=== PATIENT | male | born 1960 | race Caucasian/White ===

== ENCOUNTER 2019-01-07 02:08 | Emergency (ER) | payer OTHER ==
[2019-01-07 02:29] VITALS: BP 131/75; PULSE 72; RESP 18; TEMP 97.5
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
== END 2019-01-07 06:53 | disposition home or self-care (01) ==
LOC: EC 02:08
DX: T69.8XXA Other specified effects of reduced temperature, initial encounter (principal); F17.200 Nicotine dependence, unspecified, uncomplicated; Z59.0 Homelessness; X31.XXXA Exposure to excessive natural cold, initial encounter; Y93.84 Activity, sleeping; Y92.89 Other specified places as the place of occurrence of the external cause
CPT/HCPCS: 99283

== ENCOUNTER 2023-06-01 13:50 | Emergency (ER) | payer OTHER ==
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
[2023-06-01 14:32] VITALS: RESP 18; TEMP 97.8
[2023-06-01 15:52] VITALS: BP 101/74; PULSE 72
== END 2023-06-01 15:33 | disposition home or self-care (01) ==
LOC: EC 13:50
DX: R53.1 Weakness (principal); Z59.00 Homelessness unspecified
CPT/HCPCS: 99285

== ENCOUNTER 2023-06-01 16:00 | Inpatient (IN) | payer OTHER ==
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
[2023-06-01] MEDS: HALOPERIDOL LACTATE 5 MG/ML 1 ML VIAL IM STA (18:10)
[2023-06-01] MEDS: SODIUM CHLORIDE 0.9% 1,000 ML IV STA ×3 (18:10→22:16)
[2023-06-01 18:13] LABS: Basophils % (A) 0 %; Eosinophils % (A) 0 %; HCT 35.2 % (39.0-53.0); HGB 11.6 gm/dL (13.0-17.5); Lymphocytes # (A) 0.3 k/uL (1.0-4.8); Lymphocytes % (A) 3 %; MCH 31.8 pg (25.0-35.0); MCV 96.4 fL (80.0-100.0); Mean Platelet Volume 9.5; Monocytes # (A) 0.2 k/uL (0-1.0); Monocytes % (A) 3 %; Neutrophils # (A) 9.3 k/uL (1.3-7.7); Neutrophils % (A) 94 %; Platelet Count 169 k/uL (150-450); RBC 3.65 m/uL (4.30-5.90); RDW 15.2 % (11.5-15.5); WBC 9.9 k/uL (3.8-10.6)
[2023-06-01 18:27] LABS: ALT 108 U/L (4-49); AST 151 U/L (17-59); African American GFR (CKD) >90 (>60 ml/min/1.73 sqM); Albumin 2.1 g/dL (3.5-5.0); Alcohol <10 mg/dL; Anion Gap 7 mmol/L; Blood Urea Nitrogen 37 mg/dL (9-20); Calcium 7.8 mg/dL (8.4-10.2); Carbon Dioxide 32 mmol/L (22-30); Chloride 99 mmol/L (98-107); Glucose 215 mg/dL (74-99); Magnesium 2.1 mg/dL (1.6-2.3); Non-African American GFR(CKD) >90 (>60 ml/min/1.73 sqM); Phosphorus 3.5 mg/dL (2.5-4.5); Sodium 138 mmol/L (137-145); Total Bilirubin 1.2 mg/dL (0.2-1.3); Total Protein 4.6 g/dL (6.3-8.2)
[2023-06-01 18:36] LABS: NT-Pro-B-Type Natriuretic Pept 1180 pg/mL
[2023-06-01 18:38] LABS: Potassium 2.6 mmol/L (3.5-5.1)
[2023-06-01 18:39] LABS: Lactic Acid, Venous 3.3 mmol/L (0.7-2.0)
[2023-06-01 18:40] LABS: INR 1.1 (<1.2); Partial Thromboplastin Time 22.5 sec (22.0-30.0); Prothrombin Time 11.5 sec (10.0-12.5)
[2023-06-01 19:34] LABS: Alkaline Phosphatase 657 U/L (38-126)
[2023-06-01] MEDS ORDERED: NALOXONE 0.4 MG/ML 1 ML VIAL IV PRN (21:36)
[2023-06-01] MEDS: HYDROmorphone 1 MG/ML 1 ML SYRINGE IVP STA (22:06)
[2023-06-01] MEDS: ONDANSETRON 4 MG/2 ML VIAL IVP STA (22:06)
[2023-06-01] MEDS: POTASSIUM BICARBONATE/CIT AC 20 MEQ TABLET.EFF PO ONE ×2 (22:07→22:08)
[2023-06-01] MEDS: SODIUM CHLORIDE 0.9% 1,000 ML IV SCH (22:19)
[2023-06-01] MEDS: ONDANSETRON 4 MG/2 ML VIAL IVP PRN (22:22)
[2023-06-01] MEDS: HYDROmorphone 1 MG/ML 1 ML SYRINGE IVP PRN (22:23)
[2023-06-01] MEDS: POTASSIUM CHLORIDE 10 MEQ in WATER FOR INJECTION 1 100ML.BAG IVPB SCH (22:24)
--- NOTE | 2023-06-01 23:09 | US ---
EXAMINATION TYPE: US gallbladder DATE OF EXAM: 06/01/2023 COMPARISON: NONE CLINICAL INDICATION: Male, 62 years old with history of weak; weak x 1 year TECHNIQUE: Multiple sonographic images of the right upper quadrant are obtained. FINDINGS: EXAM MEASUREMENTS: Liver Length: 16.8 cm Gallbladder Wall: 0.2 cm CBD: 0.3 cm Right Kidney: 8.6 x 5.9 x 4.7 cm OUTSIDE PROPERTY AGENT NOTES: Pancreas: wnl Liver: Severe heterogeneity, with numerous relatively echogenic mass like areas seen throughout. Gallbladder: Echogenic material filling over half the gallbladder lumen without evidence of shadowin g or flow on color Doppler, likely sludge. Evidence for sonographic Davis's sign: No CBD: wnl Right Kidney: wnl There appears to be partially imaged ascites. IMPRESSION: 1. Severely heterogeneous liver with multiple echogenic masslike lesions throughout. Metastatic dise ase is a primary consideration. CT may be obtained for further evaluation. 2. Suspect small to moderate volume of ascites. 3. Gallbladder sludge, without further sonographic evidence to suggest acute cholecystitis.
[2023-06-02 04:53] LABS: Appearance,Urine Cloudy (Clear); Bacteria,Urine Many /hpf; Bilirubin,Urine Negative (Negative); Blood,Urine Negative (Negative); Color,Urine Yellow; Glucose,Urine (UA) Negative (Negative); Hyaline Casts,Urine 16 /lpf (0-2); Ketones,Urine Negative (Negative); Leukocyte Esterase,Urine Moderate (Negative); Mucus,Urine Few /hpf; Nitrite,Urine Negative (Negative); Protein,Urine Trace (Negative); RBC,Urine 2 /hpf (0-5); Specific Gravity,Urine 1.025 (1.001-1.035); Squamous Epithelial Cell,Urine <1 /hpf (0-4); WBC,Urine 40 /hpf (0-5)
[2023-06-02 05:00] LABS: Amphetamine Screen,Urine Not Detected (NotDetected); Barbiturate Screen,Urine Not Detected (NotDetected); Benzodiazepines Screen,Urine Not Detected (NotDetected); Cocaine Screen,Urine Not Detected (NotDetected); Methadone Screen, Urine Not Detected (NotDetected); Opiate Screen,Urine Not Detected (NotDetected); Oxycodone Screen, Urine Not Detected (NotDetected); Phencyclidine Screen,Urine Not Detected (NotDetected); Tricyclic Antidepressant,Urine Not Detected (NotDetected); Urn Cannabinoid Scrn Not Detected (NotDetected)
[2023-06-02 06:47] LABS: ALT 129 U/L (4-49); AST 193 U/L (17-59); African American GFR (CKD) >90 (>60 ml/min/1.73 sqM); Albumin 2.1 g/dL (3.5-5.0); Anion Gap 3 mmol/L; Blood Urea Nitrogen 33 mg/dL (9-20); Calcium 7.6 mg/dL (8.4-10.2); Carbon Dioxide 34 mmol/L (22-30); Chloride 102 mmol/L (98-107); Glucose 162 mg/dL (74-99); Magnesium 2.1 mg/dL (1.6-2.3); Non-African American GFR(CKD) >90 (>60 ml/min/1.73 sqM); Phosphorus 2.6 mg/dL (2.5-4.5); Potassium 3.6 mmol/L (3.5-5.1); Sodium 139 mmol/L (137-145); Total Bilirubin 1.2 mg/dL (0.2-1.3); Total Protein 4.5 g/dL (6.3-8.2)
[2023-06-02 07:02] LABS: Alkaline Phosphatase 833 U/L (38-126)
[2023-06-02 07:12] LABS: Basophils % (A) 0 %; Eosinophils % (A) 0 %; HGB 10.7 gm/dL (13.0-17.5); Lymphocytes # (A) 0.4 k/uL (1.0-4.8); Lymphocytes % (A) 3 %; MCH 30.7 pg (25.0-35.0); MCHC 31.6 g/dL (31.0-37.0); MCV 97.3 fL (80.0-100.0); Mean Platelet Volume 9.9; Monocytes # (A) 0.3 k/uL (0-1.0); Monocytes % (A) 2 %; Neutrophils # (A) 9.7 k/uL (1.3-7.7); Neutrophils % (A) 93 %; Platelet Count 155 k/uL (150-450); RBC 3.49 m/uL (4.30-5.90); RDW 15.5 % (11.5-15.5); WBC 10.3 k/uL (3.8-10.6)
[2023-06-02] MEDS ORDERED: IOPAMIDOL CONTRAST (ORAL USE) VIAL PO PRN (11:14)
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
[2023-06-02 16:07] LABS: Glucose,Whole Blood 186 mg/dL (70-110)
[2023-06-02 21:02] LABS: Glucose,Whole Blood 161 mg/dL (70-110)
[2023-06-02] MEDS: HALOPERIDOL LACTATE 5 MG/ML 1 ML VIAL IM STA ×2 (21:59→23:36)
[2023-06-03] MEDS: LORazepam 2 MG/ML INJ IV PRN (00:05)
--- NOTE | 2023-06-03 01:19 | XR ---
EXAM: XR Chest, 1 View CLINICAL HISTORY: ITS.REASON XR Reason: hypoxia TECHNIQUE: Frontal view of the chest. COMPARISON: No relevant prior studies available. IMPRESSION: Right-sided effusion. Moderate pulmonary edema
[2023-06-03] MEDS: FUROSEMIDE 10 MG/ML 4 ML VIAL IV ONE (01:53)
[2023-06-03] MEDS: IPRATROPIUM-ALBUTEROL 3 ML NEB INHALATION PRN (02:02)
--- NOTE | 2023-06-03 02:40 | CT ---
EXAM: CT Head Without Intravenous Contrast CLINICAL HISTORY: ITS.REASON CT Reason: altered mental status, possible mets TECHNIQUE: Axial computed tomography images of the head/brain without intravenous contrast. CTDI is 49.2 mGy and DLP is 1208 mGy-cm. This CT exam was performed using one or more of the following dose reduction techniques: automated exposure control, adjustment of the mA and/or kV according to patient size, and/or use of iterative reconstruction technique. COMPARISON: No relevant prior studies available. FINDINGS: Brain: No hemorrhage or mass effect. Ventricles: No hydrocephalus. Bones/joints: Unremarkable. Soft tissues: Unremarkable. Sinuses: No air fluid level. Mastoid air cells: Moderate left mastoid effusion. IMPRESSION: No acute hemorrhage, hydrocephalus, or mass effect. Moderate left mastoid effusion.
[2023-06-03 03:11] LABS: Appearance,Urine Clear (Clear); Bilirubin,Urine Negative (Negative); Blood,Urine Negative (Negative); Color,Urine Colorless; Glucose,Urine (UA) Negative (Negative); Ketones,Urine Negative (Negative); Leukocyte Esterase,Urine Negative (Negative); Nitrite,Urine Negative (Negative); Protein,Urine Negative (Negative); Specific Gravity,Urine 1.009 (1.001-1.035); Urobilinogen,Urine <2.0 mg/dL (<2.0)
--- NOTE | 2023-06-03 05:50 | CT ---
EXAM: CT Chest, Abdomen and Pelvis With Intravenous Contrast CLINICAL HISTORY: ITS.REASON CT Reason: poss liver mets TECHNIQUE: Axial computed tomography images of the chest, abdomen and pelvis with intravenous contrast. CTDI is 7.1 mGy and DLP is 564.6 mGy-cm. This CT exam was performed using one or more of the following dose reduction techniques: automated exposure control, adjustment of the mA and/or kV according to patient size, and/or use of iterative reconstruction technique. COMPARISON: No relevant prior studies available. FINDINGS: CHEST: Lungs: Dependent airspace disease of the lungs with consolidation findings may be infectious in nature. However, concurrent sequelae of metastatic disease not excluded. Pleural space: Moderate left and small right pleural effusions. No pneumothorax. Heart: Unremarkable. No cardiomegaly. No significant pericardial effusion. No significant coronary artery calcifications. Mediastinum: Prominent enlarged mediastinal lymph nodes, the largest a pretracheal lymph node measuring up to 1.9 cm. Findings may be reactive in nature. Metastatic disease also possible. ABDOMEN: Liver: Hepatomegaly with innumerable enhancing nodules in the liver. Findings likely relate to sequela of metastatic disease. Gallbladder and bile ducts: Unremarkable. No calcified stones. No ductal dilation. Pancreas: Unremarkable. No ductal dilation. No mass. Spleen: Unremarkable. No splenomegaly. Adrenals: Unremarkable. No mass. Kidneys and ureters: Unremarkable. No hydronephrosis. No solid mass. Stomach and bowel: Unremarkable. No obstruction. No mucosal thickening. PELVIS: Appendix: No findings to suggest acute appendicitis. Bladder: Unremarkable. No mass. Reproductive: Unremarkable as visualized. CHEST, ABDOMEN and PELVIS: Intraperitoneal space: Unremarkable. No significant fluid collection. No free air. Bones/joints: Degenerative changes in the spine. Age indeterminate T5 compression fracture. Consider correlation with point tenderness. If there is further concern for pathologic compression fracture, consider MRI. No dislocation. Soft tissues: Anasarca. Vasculature: Unremarkable. No aortic aneurysm. Lymph nodes: Enlarged nodule adjacent to the heart measuring up to 2.1 cm which may relate to a metastatic pericardial lymph node. Other findings: No history of type of malignancy, posttreatment changes, or other prior radiographic imaging provided. Because of this, recommend correlation with prior imaging and follow-up at a multidisciplinary cancer center with continued radiographic follow-up imaging as dictated per patient's primary malignancy. IMPRESSION: 1. No history of type of malignancy, posttreatment changes, or other prior radiographic imaging provided. Because of this, recommend correlation with prior imaging and follow-up at a multidisciplinary cancer center with continued radiographic follow-up imaging as dictated per patient's primary malignancy. 2. Hepatomegaly with innumerable enhancing nodules in the liver. Findings likely relate to sequela of metastatic disease. 3. Enlarged nodule adjacent to the heart measuring up to 2.1 cm which may relate to a metastatic pericardial lymph node. 4. Dependent airspace disease of the lungs with consolidation findings may be infectious in nature. However, concurrent sequelae of metastatic disease not excluded. 5. Prominent enlarged mediastinal lymph nodes, the largest a pretracheal lymph node measuring up to 1.9 cm. Findings may be reactive in nature. Metastatic disease also possible. 6. Findings suspicious for sequela of generalized volume overload with bilateral pleural effusions, mesenteric ascites, and anasarca. Concurrent metastatic ascites are not excluded. 7. Age indeterminate T5 compression fracture. Consider correlation with point tenderness. If there is further concern for pathologic compression fracture, consider MRI.
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
[2023-06-03] MEDS: IPRATROPIUM-ALBUTEROL 3 ML NEB INHALATION SCH (08:39)
[2023-06-03] MEDS: HALOPERIDOL LACTATE 5 MG/ML 1 ML VIAL IVP PRN (09:13)
[2023-06-03] MEDS: FUROSEMIDE 10 MG/ML 2 ML VIAL IV SCH (09:13)
[2023-06-03 11:22] LABS: Basophils % (A) 0 %; Eosinophils % (A) 0 %; HCT 36.5 % (39.0-53.0); HGB 11.6 gm/dL (13.0-17.5); Lymphocytes # (A) 0.3 k/uL (1.0-4.8); Lymphocytes % (A) 3 %; MCH 31.3 pg (25.0-35.0); MCHC 31.7 g/dL (31.0-37.0); MCV 98.6 fL (80.0-100.0); Macrocytosis Slight; Mean Platelet Volume 9.6; Monocytes # (A) 0.2 k/uL (0-1.0); Monocytes % (A) 2 %; Neutrophils # (A) 8.9 k/uL (1.3-7.7); Neutrophils % (A) 94 %; Platelet Count 145 k/uL (150-450); RDW 15.6 % (11.5-15.5); WBC 9.5 k/uL (3.8-10.6)
[2023-06-03 11:37] LABS: ALT 119 U/L (4-49); AST 135 U/L (17-59); African American GFR (CKD) >90 (>60 ml/min/1.73 sqM); Albumin 2.1 g/dL (3.5-5.0); Anion Gap 5 mmol/L; Bilirubin, Delta 0.7 mg/dL (0.0-0.2); Bilirubin,Unconjugated 0.3 mg/dL (0.0-1.1); Blood Urea Nitrogen 29 mg/dL (9-20); Calcium 7.5 mg/dL (8.4-10.2); Carbon Dioxide 35 mmol/L (22-30); Chloride 101 mmol/L (98-107); Glucose 127 mg/dL (74-99); Non-African American GFR(CKD) >90 (>60 ml/min/1.73 sqM); Sodium 141 mmol/L (137-145); Total Protein 4.7 g/dL (6.3-8.2)
[2023-06-03 11:55] LABS: Alkaline Phosphatase 697 U/L (38-126); Potassium 2.7 mmol/L (3.5-5.1)
[2023-06-03] MEDS ORDERED: OLANZapine 2.5 MG TAB PO PRN (12:03)
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
[2023-06-03] MEDS ORDERED: Potassium Replacement Protocol 1 EACH MISC MISCELLANE PRN (12:24)
--- NOTE | 2023-06-03 13:18 | P.PN ---
Subjective Progress Note Date: 06/03/23 CHIEF COMPLAINT: Weakness and altered mental status HISTORY OF PRESENT ILLNESS: Surgical service following regards to patient's abdominal pain. Liver masslike lesions noted on ultrasound. Patient remains confused and unable to sign consent for liver biopsy ordered to complete EGD today. He does have a bedside sitter. He is resting comfortably. Patient had a CT scan chest abdomen and pelvis that reported hepatomegaly with innumerable enhancing nodules in the liver. Findings likely relates sequelae of metastatic disease. Enlarged nodule adjacent to the heart which could relate to a metastatic pericardial lymph node. Consolidation in the lungs may be infectious in nature. However, concurrent sequelae of metastatic disease not excluded. Prominent enlarged mediastinal lymph nodes. The largest at pretracheal lymph node measuring 1.9 cm. Findings suspicious for sequelae of generalized volume overload with bilateral pleural effusions, mesenteric ascites anasarca. Mesenteric ascites not excluded. Age-indeterminate T5 compression fracture. PHYSICAL EXAM: VITAL SIGNS: Reviewed. GENERAL: no acute distress. ABDOMEN: Soft. Nondistended. Hepatomegaly. Firmness noted with palpation right upper quadrant NEUROLOGIC: Confused ASSESSMENT: 1. Abdominal pain 2. Hepatomegaly and liver nodules noted on CT. Concern for metastatic disease. 3. Elevated LFTs 4. Weight loss PLAN: -EGD for today canceled. Patient unable to sign consent -Biopsy of liver mass by IR service unable to be completed. Patient could not sign consent and he was agitated unable to lay flat for testing -Continue supportive care -Agree with oncology consult Physician Plant Assigner note has been reviewed by physician. Signing provider agrees with the documented findings, assessment, and plan of care. Objective - Vital Signs Vital signs: Vital Signs Temp 97.0 F L 06/03/23 08:00 Pulse 65 06/03/23 12:14 Resp 22 06/03/23 08:00 BP 116/77 06/03/23 08:00 Pulse Ox 100 06/03/23 08:39 FiO2 Intake & Output 06/02/23 06/03/23 06/03/23 18:59 06:59 18:59 Intake Total 1065 Output Total 1100 600 Balance 1065 -1100 -600 Weight 56.699 kg Intake: Intake, IV Titration 825 Amount Sodium Chloride 0.9% 1, 825 000 ml @ 75 mls/hr IV . [id number] [facility] Rx#:[id number] Oral 240 Output: Urine 1100 600 Other: Voiding Method External Catheter # Voids 1 # Bowel Movements 1 - Labs CBC & Chem 7: 06/03/23 10:13 06/03/23 10:13 Labs: Abnormal Lab Results - Last 24 Hours (Table) 06/02/23 06/02/23 06/03/23 Range/Units 16:05 21:01 10:13 RBC 3.70 L (4.30-5.90) m/uL Hgb 11.6 L (13.0-17.5) gm/dL Hct 36.5 L (39.0-53.0) % RDW 15.6 H (11.5-15.5) % Plt Count 145 L (150-450) k/uL Neutrophils # 8.9 H (1.3-7.7) k/uL Lymphocytes # 0.3 L (1.0-4.8) k/uL Potassium (3.5-5.1) mmol/L Carbon Dioxide (22-30) mmol/L BUN (9-20) mg/dL Glucose (74-99) mg/dL POC Glucose (mg/dL) 186 H 161 H (70-110) mg/dL Calcium (8.4-10.2) mg/dL Delta Bilirubin (0.0-0.2) mg/dL AST (17-59) U/L ALT (4-49) U/L Alkaline Phosphatase (38-126) U/L Total Protein (6.3-8.2) g/dL Albumin (3.5-5.0) g/dL 06/03/23 Range/Units 10:13 RBC (4.30-5.90) m/uL Hgb (13.0-17.5) gm/dL Hct (39.0-53.0) % RDW (11.5-15.5) % Plt Count (150-450) k/uL Neutrophils # (1.3-7.7) k/uL Lymphocytes # (1.0-4.8) k/uL Potassium 2.7 L* (3.5-5.1) mmol/L Carbon Dioxide 35 H (22-30) mmol/L BUN 29 H (9-20) mg/dL Glucose 127 H (74-99) mg/dL POC Glucose (mg/dL) (70-110) mg/dL Calcium 7.5 L (8.4-10.2) mg/dL Delta Bilirubin 0.7 H (0.0-0.2) mg/dL AST 135 H (17-59) U/L ALT 119 H (4-49) U/L Alkaline Phosphatase 697 H (38-126) U/L Total Protein 4.7 L (6.3-8.2) g/dL Albumin 2.1 L (3.5-5.0) g/dL
[2023-06-03] MEDS: POTASSIUM CHLORIDE 10 MEQ in WATER FOR INJECTION 1 100ML.BAG IVPB SCH (13:33)
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
--- NOTE | 2023-06-03 14:54 | P.PN ---
Subjective Progress Note Date: 06/03/23 Principal diagnosis: Liver mass, LAD, consolidation in the lungs In f/u today pt has no c/o, he is requiring staff to sit with him. Not certain if patient is understanding the CAT scan results that were reviewed with him today. He does not appear to be in any pain from his mannerisms. Objective - Vital Signs Vital signs: Vital Signs Temp 97.0 F L 06/03/23 08:00 Pulse 86 06/03/23 08:59 Resp 22 06/03/23 08:00 BP 116/77 06/03/23 08:00 Pulse Ox 100 06/03/23 08:39 FiO2 Intake & Output 06/02/23 06/03/23 06/03/23 18:59 06:59 18:59 Intake Total 1065 Output Total 1100 Balance 1065 -1100 Weight 56.699 kg Intake: Intake, IV Titration 825 Amount Sodium Chloride 0.9% 1, 825 000 ml @ 75 mls/hr IV . [id number] [facility] Rx#:[id number] Oral 240 Output: Urine 1100 Other: Voiding Method External Catheter # Voids 1 # Bowel Movements 1 - Constitutional General appearance: Present: no acute distress, thin - EENT ENT: Present: hearing grossly normal (He does respond to voice) - Respiratory Details: Respirations even and unlabored at rest - Cardiovascular Details: Skin warm and dry to the touch - Neurologic Neurologic Comment(s): No gross deficits are appreciated - Psychiatric Psychiatric Comment(s): Patient arouses to voice, tries to answer questions but is mostly unintelligible - Labs CBC & Chem 7: 06/03/23 10:13 06/03/23 10:13 Labs: Abnormal Lab Results - Last 24 Hours (Table) 06/02/23 06/02/23 Range/Units 16:05 21:01 POC Glucose (mg/dL) 186 H 161 H (70-110) mg/dL - Imaging and Cardiology CT scan - abdomen: report reviewed CT scan - chest: report reviewed CT scan - pelvis: report reviewed Assessment and Plan (1) Liver masses Current Visit: Yes Status: Acute Priority: High Code(s): R16.0 - HEPATOMEGALY, NOT ELSEWHERE CLASSIFIED SNOMED Code(s): 064580842 (2) Anemia Current Visit: Yes Status: Acute Priority: Medium Code(s): D64.9 - ANEMIA, UNSPECIFIED SNOMED Code(s): 480059152 Plan: Liver mass -CT chest abdomen and pelvis reporting liver masses, lymphadenopathy, consolidation in the lungs, T5 compression fracture versus met. These results were reviewed with the patient but uncertain as to how much she is understanding -Interventional radiology has been consulted for liver biopsy Normocytic normochromic anemia -Anemia workup has been ordered, still pending. Unclear etiology at this time. -Hemoglobin is stable. No need for transfusion at this time. Patient is being assessed by psychiatry. Guardianship is is being looked into. Doctor attests: I performed a history and physical examination of this patient, developed impression and plan of care. Discussed with dictator. I agree with dictators note, documented as a scribe.
[2023-06-03 18:14] LABS: Magnesium 1.8 mg/dL (1.6-2.3); Potassium 3.4 mmol/L (3.5-5.1)
--- NOTE | 2023-06-03 20:58 | P.PN ---
Subjective Patient is a pleasant 62 years old male with no known past medical history, he does not follow-up with PCP and he does not have family/friend support for him. Patient also was homeless and looks like he lives in a motel He was brought via EMS from his hotel. Usually he follow-up with [facility] but he started following for unknown., As per records looks like [facility] team helped with his lodging in the motel. Is not clear reports his main complaint as patient is poor historian. He states he came to the hospital because he is sick without specification. However there was reports of generalized weakness, questionable atrial problem and bilateral leg swelling. Patient lying in bed lethargic but does not look in distress. He is not tachypneic or tachycardic. No abdominal pain for him or vomiting or diarrhea. No other specific complaint However patient has right upper quadrant tenderness and bilateral pitting leg edema For me he denies alcohol or illicit drug. He states he smokes but he could not verify for how long or how much. During the encounter patient was slow to respond and sometimes his answer does not correlate with the questions asked Patient is hemodynamically stable, afebrile, he status post normal saline boluses CBC reviewed showing mild anemia of hemoglobin 11.6 INR 1.1, BMP is unremarkable except for low potassium of 2.6, magnesium 2.1 Troponin is negative, TSH within the reference range 0.8 Urine analysis is suspicious for infection versus dehydrated sample Urine drug screen is negative, alcohol level is negative Gallbladder ultrasound showing gallbladder sludge with no evidence of acute cholecystitis but there is hepatic masses suspicious for metastasis Patient remains confused, he lacked capacity per psychiatrist. early childhood worker on the case to obtain guardianship He was lying in bed calm but easily gets agitated, he also is difficult to follow commands for procedures for example liver biopsy IR team are consulted for biopsy for his liver masses. . Carcinoma is also suspected given his mass and lymphadenopathy He has anasarca and he is on IV Lasix 20 mg twice daily Hematology/oncology team on the case CT of the abdomen chest and pelvis is reviewed by myself showing multiple liver metastasis, lymphadenopathy and basilar pulmonary consolidation with suspicion of infrahilar mass and compression fraction. He remains on Haldol as needed and Zyprexa standing and as needed doses Prognosis guarded Review of systems CONSTITUTIONAL: No fever, no malaise, no fatigue. HEENT: No recent visual problems or hearing problems. Denied any sore throat. CARDIOVASCULAR: No orthopnea, PND, no palpitations, no syncope. HEMATOLOGICAL: Denies any bleeding or petechiae. GENITOURINARY: Denies any burning micturition, frequency, or urgency. MUSCULOSKELETAL/RHEUMATOLOGICAL: Denies any joint pain, swelling, or any muscle pain. ENDOCRINE: Denies any polyuria or polydipsia. Active Medications Generic Name Dose Route Start Last Admin Trade Name Freq PRN Reason Stop Dose Admin Albuterol/Ipratropium 3 ml 06/03/23 08:00 06/03/23 20:45 Ipratropium-Albuterol 3 Ml Neb INHALATION Not Given RT-QID [facility] Furosemide 20 mg 06/03/23 09:00 06/03/23 09:13 Furosemide 10 Mg/Ml 2 Ml Vial IV 20 mg Q12HR [facility] Administration Haloperidol Lactate 5 mg 06/02/23 23:38 06/03/23 09:13 Haloperidol Lactate 5 Mg/Ml 1 Ml Vial IVP 5 mg Q8HR PRN Administration Agitation or Acute Psychosis Hydromorphone HCl 1 mg 06/01/23 21:36 06/01/23 22:23 Hydromorphone 1 Mg/Ml 1 Ml Syringe IVP 1 mg Q3HR PRN Administration Severe Pain (Scale 7 to 10) Miscellaneous Information 1 each 06/03/23 12:24 Potassium Replacement Protocol 1 Each Misc MISCELLANE DAILY PRN Per Protocol Protocol Naloxone HCl 0.2 mg 06/01/23 21:36 Naloxone 0.4 Mg/Ml 1 Ml Vial IV Q2M PRN Opioid Reversal Olanzapine 2.5 mg 06/03/23 12:03 Olanzapine 2.5 Mg Tab PO TID PRN Agitation or Acute Psychosis Olanzapine 2.5 mg 06/03/23 21:00 Olanzapine 2.5 Mg Tab PO HS [facility] Ondansetron HCl 4 mg 06/01/23 21:36 06/01/23 22:22 Ondansetron 4 Mg/2 Ml Vial IVP 4 mg Q8HR PRN Administration Nausea And Vomiting Objective - Vital Signs Vital signs: Vital Signs Temp 97.9 F 06/03/23 20:00 Pulse 94 06/03/23 20:00 Resp 17 06/03/23 20:00 BP 107/66 06/03/23 20:00 Pulse Ox 95 06/03/23 20:00 FiO2 Intake & Output 06/03/23 06/03/23 06/04/23 06:59 18:59 06:59 Intake Total 180 Output Total 1100 950 Balance -1100 -770 Weight 56.699 kg Intake: Oral 180 Output: Urine 1100 950 Other: Voiding Method External Catheter - Exam -GENERAL: The patient is awake and alert but confused, get easily agitated, not in any acute distress. Well developed, well nourished. HEENT: Pupils are round and equally reacting to light. EOMI. No scleral icterus. No conjunctival pallor. Normocephalic, atraumatic. No pharyngeal erythema. No thyromegaly. CARDIOVASCULAR: S1 and S2 present. No murmurs, rubs, or gallops. PULMONARY: Chest is clear to auscultation, no wheezing , no crackles. -ABDOMEN: Soft, mild RUQ tenderness, nondistended, normoactive bowel sounds. No palpable organomegaly. MUSCULOSKELETAL: No joint swelling or deformity. EXTREMITIES: No cyanosis, clubbing, or pedal edema. NEUROLOGICAL: Gross neurological examination did not reveal any focal deficits. SKIN: No rashes. no petechiae. - Labs CBC & Chem 7: 06/03/23 10:13 06/03/23 17:31 Labs: Abnormal Lab Results - Last 24 Hours (Table) 06/02/23 06/03/23 06/03/23 Range/Units 21:01 10:13 10:13 RBC 3.70 L (4.30-5.90) m/uL Hgb 11.6 L (13.0-17.5) gm/dL Hct 36.5 L (39.0-53.0) % RDW 15.6 H (11.5-15.5) % Plt Count 145 L (150-450) k/uL Neutrophils # 8.9 H (1.3-7.7) k/uL Lymphocytes # 0.3 L (1.0-4.8) k/uL Potassium 2.7 L* (3.5-5.1) mmol/L Carbon Dioxide 35 H (22-30) mmol/L BUN 29 H (9-20) mg/dL Glucose 127 H (74-99) mg/dL POC Glucose (mg/dL) 161 H (70-110) mg/dL Calcium 7.5 L (8.4-10.2) mg/dL Delta Bilirubin 0.7 H (0.0-0.2) mg/dL AST 135 H (17-59) U/L ALT 119 H (4-49) U/L Alkaline Phosphatase 697 H (38-126) U/L Total Protein 4.7 L (6.3-8.2) g/dL Albumin 2.1 L (3.5-5.0) g/dL Procalcitonin (0.02-0.09) ng/mL 06/03/23 06/03/23 Range/Units 10:13 17:31 RBC (4.30-5.90) m/uL Hgb (13.0-17.5) gm/dL Hct (39.0-53.0) % RDW (11.5-15.5) % Plt Count (150-450) k/uL Neutrophils # (1.3-7.7) k/uL Lymphocytes # (1.0-4.8) k/uL Potassium 3.4 L (3.5-5.1) mmol/L Carbon Dioxide (22-30) mmol/L BUN (9-20) mg/dL Glucose (74-99) mg/dL POC Glucose (mg/dL) (70-110) mg/dL Calcium (8.4-10.2) mg/dL Delta Bilirubin (0.0-0.2) mg/dL AST (17-59) U/L ALT (4-49) U/L Alkaline Phosphatase (38-126) U/L Total Protein (6.3-8.2) g/dL Albumin (3.5-5.0) g/dL Procalcitonin 3.41 H (0.02-0.09) ng/mL Assessment and Plan Assessment: Transaminitis with right upper quadrant abdominal pain, with ultrasound showing multiple masses suspicious for metastatic disease Bilateral basal consolidation, with right infrahilar consolidation suspicious for bronchogenic carcinoma Bilateral pitting leg edema, Generalized weakness Metabolic/toxic encephalopathy Patient lacked capacity to make medical decision Moderate calorie protein malnutrition hypoalbuminemia asymptomatic bacteriuria. Repeat UA is normal History of schizophrenia Plan: Continue with IV Lasix IR team for liver biopsy Consult hematology/oncology team Pulmonary consult is appreciated Surgery team on the case Social work consult and PT/OT Labs and medication were reviewed.. Continue same treatment. Continue with symptomatic treatment. Resume home medication. Monitor labs and vitals. DVT and GI prophylaxis. Further recommendations as per clinical course of the patient DVT prophylaxis: SCD GI Prophylaxis: Pepcid PT/OT: Pending Prognosis is guarded I tried to call family. Patient has no family member in the chart.
[2023-06-03] MEDS: OLANZapine 2.5 MG TAB PO SCH (22:59)
[2023-06-04] MEDS: AMPICILLIN-SULBACTAM 3 GM in SODIUM CHLORIDE 0.9% 100 ML IVPB SCH (09:37)
--- NOTE | 2023-06-04 13:08 | P.PN ---
Subjective Progress Note Date: 06/04/23 CHIEF COMPLAINT: Weakness and altered mental status HISTORY OF PRESENT ILLNESS: Surgical service following regards to patient's abdominal pain. Liver masslike lesions noted on ultrasound. Patient remains confused and unable to sign consent for liver biopsy ordered or to complete EGD. Patient had a CT scan chest abdomen and pelvis that reported hepatomegaly with innumerable enhancing nodules in the liver. Findings likely relates sequelae of metastatic disease. Enlarged nodule adjacent to the heart which could relate to a metastatic pericardial lymph node. Consolidation in the lungs may be infe ctious in nature. However, concurrent sequelae of metastatic disease not excluded. Prominent enlarged mediastinal lymph nodes. The largest at pretracheal lymph node measuring 1.9 cm. Findings suspicious for sequelae of generalized volume overload with bilateral pleural effusions, mesenteric ascites anasarca. Mesenteric ascites not excluded. Age-indeterminate T5 compression fracture. Patient sitting at bedside chair. No complaints at this time. Appears more alert. And able to answer some questions. But still confused. Patient in the process of being assigned a guardian. PHYSICAL EXAM: VITAL SIGNS: Reviewed. GENERAL: no acute distress. ABDOMEN: Soft. Nondistended. Hepatomegaly. Firmness noted with palpation right upper quadrant NEUROLOGIC: Confused ASSESSMENT: 1. Abdominal pain 2. Hepatomegaly and liver nodules noted on CT. Concern for metastatic disease. 3. Elevated LFTs 4. Weight loss PLAN: -Awaiting patient to be assigned a guardian -EGD canceled. Patient unable to sign consent -Biopsy of liver mass by IR service unable to be completed. Patient could not sign consent and he was agitated unable to lay flat for testing -Continue supportive care -Advance diet to regular Physician [facility]inner note has been reviewed by physician. Signing provider agrees with the documented findings, assessment, and plan of care. Objective - Vital Signs Vital signs: Vital Signs Temp 98.1 F 06/04/23 11:45 Pulse 94 06/04/23 12:56 Resp 16 06/04/23 11:45 BP 108/70 06/04/23 11:45 Pulse Ox 93 L 06/04/23 11:45 FiO2 Intake & Output 06/03/23 06/04/23 06/04/23 18:59 06:59 18:59 Intake Total 180 190 Output Total 950 1250 Balance -770 -1250 190 Weight 56.699 kg 17.6 kg Intake: IV 10 Invasive Line 2 10 Oral 180 180 Output: Urine 950 1250 Other: Voiding Method External Catheter External Catheter External Catheter - Labs CBC & Chem 7: 06/03/23 10:13 06/04/23 07:15 Labs: Abnormal Lab Results - Last 24 Hours (Table) 06/03/23 06/03/23 Range/Units 10:13 17:31 Potassium 3.4 L (3.5-5.1) mmol/L Procalcitonin 3.41 H (0.02-0.09) ng/mL
--- NOTE | 2023-06-04 15:03 | P.PN ---
Subjective Progress Note Date: 06/04/23 Patient is a 62-year-old white male with little known past medical history. He may have history of schizoaffective disorder and reportedly follows at [facility]. He is currently homeless, living at a motel. Reportedly has a significant smoking history, but will not elaborate on this. After review of the medical record, patient had 2 ER visits on 06/01/2023. ER reports state that originally [facility] staff were concerned about the patient's wellbeing. Patient was evaluated, and discharged from the emergency room, but he returned later that afternoon because he had trouble returning to the hotel. After further workup, the patient was found to have multiple medical concerns, including some upper abdominal pain and abdominal distention. Abdominal ultrasound identified is severely heterogenous liver with multiple echogenic masslike lesions throughout. Metastatic disease was a primary consideration. There was gallbladder sludge without further evidence suggest acute cholecystitis. There was small to moderate volume ascites. A CT of the chest, abdomen, pelvis was ordered, however, on my evaluation the patient this had not been performed yet. The patient is refusing oral contrast. He also states that the radiation will kill him. The patient appears to be delirious. He is having multiple hallucinations, including auditory and visual hallucinations. He is yelling in the room at something that he calls a ghost. He is fairly agitated, and not receptive to care. He is suspicious of staff, and will not answer my questions. I am concerned about the patient's decision making capacity. He will not keep his supplemental oxygen, and is currently hypoxic. SpO2 is 70%. He is also tachycardic and hypertensive. Patient had received 2 mg of Haldol in the emergency room earlier. I did repeat with another additional dose of Haldol 5 mg IM once. I also started the patient on as needed Ativan for anxiety/agitation. This appears to calm the patient, he is more receptive to care. We were able to put his oxygen back on, and is currently requiring 6 L/min nasal cannula. He is dyspneic. He has audible wheezing. Chest x-ray was completed which showed a right-sided effusion and moderate pulmonary edema. There is a questionable right hilar density. CBC on arrival: WBC count 10.3, hemoglobin 10.7, hematocrit 34, platelets 155. BMP on arrival: Sodium 139, potassium 3.6, chloride 102, serum bicarb 34, BUN 33, creatinine 0.75, glucose 162. LFTs were elevated with an AST of 193, ALT of 129, ALP of 833. Total bilirubin 1.2. Albumin 2.1. Original urinalysis had moderate leukocytes and many bacteria, repeat sample looks fairly unremarkable. Patient is afebrile. Urine drug screen was all negative. I saw this patient on the medical floor and the patient was confused and he did not have any good insight on his condition. He is on 4 L of oxygen by nasal cannula with a pulse ox of 98%. Did not show any signs of any significant respiratory distress. However, his quite emaciated and cachectic. He was also seen by psychiatry and he was thought to have a component of delirium along with history of schizophrenia. The patient was asked to receive Zyprexa 2.5 mg at bedtime for psychosis and agitation and 2.5 mg 3 times daily on a as needed basis as needed. Meanwhile, the patient was seen by various other specialists including medical oncology and general surgery. Previously was canceled. The patient is going to undergo a liver biopsy by interventional radiology. Patient cannot sign consent and this needs to be worked on by clinical social work aide/case management. He may need a public guardian. BUN is 29 with a creatinine of 0.7. LFTs are still abnormal and elevated on today's evaluation. UA is negative. The white cell count at 9.5 with a hemoglobin 11.6. I also reviewed the CAT scan of the chest. The patient does have airspace disease in the lung base bilaterally along with areas of consolidation. This could be potentially a malignant process. The right lower lobe bronchus and the bronchus intermedius has been quite narrowed and the patient also has prominent mediastinal lymph nodes. Possibility of underlying primary bronchogenic carcinoma cannot be completely excluded. He is currently on Lasix 20 mg IV every 12 hours. His proBNP level was 1180. Procalcitonin level needs to be checked. I was able to review the CAT scan of the chest abdomen and pelvis that was done earlier this morning at around 6 AM. The patient has dependent consolidation of the lung base bilaterally, possible reactive hilar mass, narrowing of the right lower lobe bro nchus/bronchus intermedius, mediastinal lymphadenopathy, hepatomegaly and innumerable enhancing nodules in the liver consistent with metastatic disease and evidence of generalized volume overload to bilateral pleural effusion/mesenteric ascites and anasarca. Malignant ascitic fluid cannot be completely excluded. The patient also has a fracture of the T5 spine, pathology compression fracture cannot be completely excluded. On 06/04/2023, the patient is resting comfortably in a chair. No specific complaints. He is quite debilitated and weak and mentation is altered. Legal guardianship has been safe at this point in time. EGD has been canceled. Unable to complete the biopsy of the liver as the patient cannot sign his own consent. Respiratory status is stable. The patient remains on oxygen 4 L/min nasal cannula. His procalcitonin level was elevated. IV Unasyn was added. His potassium level is at 3.6. No agitation at this point in time. He has a sitter at the bedside. Objective - Vital Signs Vital signs: Vital Signs Temp 98.1 F 06/04/23 09:31 Pulse 102 H 06/04/23 09:45 Resp 16 06/04/23 04:00 BP 101/62 06/04/23 09:31 Pulse Ox 91 L 06/04/23 09:36 FiO2 Intake & Output 06/03/23 06/04/23 06/04/23 18:59 06:59 18:59 Intake Total 180 190 Output Total 950 1250 Balance -770 -1250 190 Weight 56.699 kg 17.6 kg Intake: IV 10 Invasive Line 2 10 Oral 180 180 Output: Urine 950 1250 Other: Voiding Method External Catheter External Catheter External Catheter - Exam Physical exam is limited, as the patient is acutely psychotic GENERAL EXAM: Anxious and agitated, yelling at the end of the bed, appears dyspneic with some accessory muscle use and audible wheezing. Cachectic appearance HEAD: Normocephalic and atraumatic EYES: Normal reaction of pupils, equal size.. CHEST: No chest wall deformity. LUNGS: Equal air entry, with diminished basilar lung sounds and inspiratory crackles CVS: S1 and S2 normal with no audible murmur, regular rhythm. No extra heart sounds. ABDOMEN: Marked abdominal distention, hepatomegaly. SPINE: No scoliosis or deformity SKIN: No rashes CENTRAL NERVOUS SYSTEM: No focal deficits, tone is normal in all 4 extremities. EXTREMITIES: There is 2-3+ bilateral lower extremity pitting edema. There is digital clubbing. Peripheral pulses palpable and peripheral extremities are warm. - Labs CBC & Chem 7: 06/03/23 10:13 06/04/23 07:15 Labs: Abnormal Lab Results - Last 24 Hours (Table) 06/03/23 06/03/23 06/03/23 Range/Units 10:13 10:13 17:31 Potassium 2.7 L* 3.4 L (3.5-5.1) mmol/L Carbon Dioxide 35 H (22-30) mmol/L BUN 29 H (9-20) mg/dL Glucose 127 H (74-99) mg/dL Calcium 7.5 L (8.4-10.2) mg/dL Delta Bilirubin 0.7 H (0.0-0.2) mg/dL AST 135 H (17-59) U/L ALT 119 H (4-49) U/L Alkaline Phosphatase 697 H (38-126) U/L Total Protein 4.7 L (6.3-8.2) g/dL Albumin 2.1 L (3.5-5.0) g/dL Procalcitonin 3.41 H (0.02-0.09) ng/mL Assessment and Plan Plan: Acute delirium and schizoaffective disorder, patient is having marked auditory and visual hallucinations. He is resistive to care and suspicious of staff. Urine drug screen negative. Serum ETOH level < 10 the patient was seen by psychiatry and Zyprexa was added to the regimen. The patient is going to receive Zyprexa 2.5 mg at bedtime and 2.5 mg 3 times daily as needed for agitation. He has a sitter at the bedside. Acute hypoxemic respiratory failure, likely multifactorial, the patient has lowe r lobe consolidation and discontinued sequently for representation of underlying metastatic disease. There may be also a right infrahilar mass as there is considerable narrowing of the right lower lobe bronchus and bronchus intermedius in addition to mediastinal lymphadenopathy. Findings can be consistent with primary bronchogenic carcinoma especially with extensive lymphatic metastases to the patient was found to have on a CAT scan of the abdomen. Multiple echogenic liver masses, identified on abdominal ultrasound, and suspicious for metastatic disease. Transaminitis, possibly secondary to above Bilateral lower extremity edema, generalized anasarca and ascites Hypoalbuminemia T5 compression fracture, rule out pathologic fracture Moderate protein calorie malnutrition Severe hypokalemia, being replaced Normocytic normochromic anemia Sinus tachycardia, with frequent PACs Suspect underlying chronic obstructive pulmonary disease Chronic ongoing tobacco dependence Homelessness Plan: Supplemental O2 to maintain saturation above 90%. Currently on 4 L. IV Unasyn was started as the patient had an elevated procalcitonin level Obtain procalcitonin level was elevated and the patient is currently on IV Unasyn The patient will need a liver biopsy to establish a final diagnosis. Malignancy is highly suspected. Will need to obtain a consent for this procedure. May need a public guardian. dope worker/case management will work on this. The patient himself does not have decision-making capacity. Unable to do liver biopsy without the consent. EGD was also canceled. Continue DuoNebs [id number] Echocardiogram was ordered. The patient needs additional workup. Medical oncology consultation General surgery consultation. Psychiatric consultation appreciated Very poor prognosis based on above-mentioned comorbidities. Overall respiratory status stable.
--- NOTE | 2023-06-04 19:40 | P.PN ---
Subjective Patient is a pleasant 62 years old male with no known past medical history, he does not follow-up with PCP and he does not have family/friend support for him. Patient also was homeless and looks like he lives in a motel He was brought via EMS from his hotel. Usually he follow-up with [facility] but he started following for unknown., As per records looks like [facility] team helped with his lodging in the motel. Is not clear reports his main complaint as patient is poor historian. He states he came to the hospital because he is sick without specification. However there was reports of generalized weakness, questionable atrial problem and bilateral leg swelling. Patient lying in bed lethargic but does not look in distress. He is not tachypneic or tachycardic. No abdominal pain for him or vomiting or diarrhea. No other specific complaint However patient has right upper quadrant tenderness and bilateral pitting leg edema For me he denies alcohol or illicit drug. He states he smokes but he could not verify for how long or how much. During the encounter patient was slow to respond and sometimes his answer does not correlate with the questions asked Patient is hemodynamically stable, afebrile, he status post normal saline boluses CBC reviewed showing mild anemia of hemoglobin 11.6 INR 1.1, BMP is unremarkable except for low potassium of 2.6, magnesium 2.1 Troponin is negative, TSH within the reference range 0.8 Urine analysis is suspicious for infection versus dehydrated sample Urine drug screen is negative, alcohol level is negative Gallbladder ultrasound showing gallbladder sludge with no evidence of acute cholecystitis but there is hepatic masses suspicious for metastasis Patient remains confused, he lacked capacity per psychiatrist. social worker clinical on the case to obtain guardianship He was lying in bed calm but easily gets agitated, he also is difficult to follow commands for procedures for example liver biopsy IR team are consulted for biopsy for his liver masses. . Carcinoma is also suspected given his mass and lymphadenopathy He has anasarca and he is on IV Lasix 20 mg twice daily Hematology/oncology team on the case CT of the abdomen chest and pelvis is reviewed by myself showing multiple liver metastasis, lymphadenopathy and basilar pulmonary consolidation with suspicion of infrahilar mass and compression fraction. He remains on Haldol as needed and Zyprexa standing and as needed doses Prognosis guarded 06/04/2023 Patient resting in bed comfortable trying to eat his food Mildly confused, he feels more calm after starting on Zyprexa. No new complaint. No chest pain Oxygen requirement down to 4 He has high procalcitonin. With chest x-ray showing bilateral basal infiltrate I agree with starting the patient on IV Unasyn social worker clinical on the case, since patient has no capacity per psychiatrist and he is in the process of obtaining public guardian Patient will need liver biopsy by IR team for highly suspected malignant liver mass Objective - Vital Signs Vital signs: Vital Signs Temp 98.1 F 06/04/23 11:45 Pulse 94 06/04/23 12:56 Resp 16 06/04/23 11:45 BP 108/70 06/04/23 11:45 Pulse Ox 93 L 06/04/23 11:45 FiO2 Intake & Output 06/03/23 06/04/23 06/04/23 18:59 06:59 18:59 Intake Total 180 370 Output Total 950 1250 Balance -770 -1250 370 Weight 56.699 kg 17.6 kg Intake: IV 10 Invasive Line 2 10 Oral 180 360 Output: Urine 950 1250 Other: Voiding Method External Catheter External Catheter External Catheter - Exam -GENERAL: The patient is awake and alert but confused, get easily agitated, not in any acute distress. Well developed, well nourished. HEENT: Pupils are round and equally reacting to light. EOMI. No scleral icterus. No conjunctival pallor. Normocephalic, atraumatic. No pharyngeal erythema. No thyromegaly. CARDIOVASCULAR: S1 and S2 present. No murmurs, rubs, or gallops. PULMONARY: Chest is clear to auscultation, no wheezing , no crackles. -ABDOMEN: Soft, mild RUQ tenderness, nondistended, normoactive bowel sounds. No palpable organomegaly. MUSCULOSKELETAL: No joint swelling or deformity. EXTREMITIES: No cyanosis, clubbing, or pedal edema. NEUROLOGICAL: Gross neurological examination did not reveal any focal deficits. SKIN: No rashes. no petechiae. - Labs CBC & Chem 7: 06/03/23 10:13 06/04/23 07:15 Labs: Abnormal Lab Results - Last 24 Hours (Table) 06/03/23 06/03/23 Range/Units 10:13 17:31 Potassium 3.4 L (3.5-5.1) mmol/L Procalcitonin 3.41 H (0.02-0.09) ng/mL Assessment and Plan Assessment: Transaminitis with right upper quadrant abdominal pain, with ultrasound showing multiple masses suspicious for metastatic disease Bilateral basal consolidation, with right infrahilar consolidation suspicious for bronchogenic carcinoma Bilateral pitting leg edema, Generalized weakness Metabolic/toxic encephalopathy Patient lacked capacity to make medical decision Moderate calorie protein malnutrition hypoalbuminemia asymptomatic bacteriuria. Repeat UA is normal History of schizophrenia Plan: Continue with IV Lasix IR team for liver biopsy Consult hematology/oncology team Pulmonary consult is appreciated Surgery team on the case Social work consult and PT/OT Labs and medication were reviewed.. Continue same treatment. Continue with symptomatic treatment. Resume home medication. Monitor labs and vitals. DVT and GI prophylaxis. Further recommendations as per clinical course of the p atient DVT prophylaxis: SCD GI Prophylaxis: Pepcid PT/OT: Pending Prognosis is guarded I tried to call family. Patient has no family member in the chart.
[2023-06-04] MEDS: FAMOTIDINE 20 MG/2 ML VIAL IV SCH (20:50)
[2023-06-05 09:22] LABS: Basophils % (A) 0 %; Eosinophils % (A) 0 %; HCT 33.6 % (39.0-53.0); HGB 10.8 gm/dL (13.0-17.5); Lymphocytes # (A) 0.3 k/uL (1.0-4.8); Lymphocytes % (A) 3 %; MCH 31.3 pg (25.0-35.0); MCHC 32.2 g/dL (31.0-37.0); Mean Platelet Volume 9.5; Monocytes # (A) 0.4 k/uL (0-1.0); Monocytes % (A) 4 %; Neutrophils # (A) 8.6 k/uL (1.3-7.7); Neutrophils % (A) 92 %; Platelet Count 144 k/uL (150-450); RBC 3.46 m/uL (4.30-5.90); RDW 15.8 % (11.5-15.5); WBC 9.4 k/uL (3.8-10.6)
[2023-06-05 09:47] LABS: ALT 124 U/L (4-49); AST 132 U/L (17-59); African American GFR (CKD) >90 (>60 ml/min/1.73 sqM); Albumin 2.2 g/dL (3.5-5.0); Anion Gap 4 mmol/L; Bilirubin, Delta 0.7 mg/dL (0.0-0.2); Bilirubin,Unconjugated 0.3 mg/dL (0.0-1.1); Blood Urea Nitrogen 32 mg/dL (9-20); Calcium 8.1 mg/dL (8.4-10.2); Carbon Dioxide 32 mmol/L (22-30); Chloride 98 mmol/L (98-107); Glucose 136 mg/dL (74-99); Magnesium 1.9 mg/dL (1.6-2.3); Non-African American GFR(CKD) >90 (>60 ml/min/1.73 sqM); Potassium 3.3 mmol/L (3.5-5.1); Sodium 134 mmol/L (137-145); Total Protein 4.8 g/dL (6.3-8.2)
[2023-06-05 10:03] LABS: Alkaline Phosphatase 696 U/L (38-126)
[2023-06-05 15:12] LABS: Methylmalonic Acid 0.45 umol/L (<0.40)
--- NOTE | 2023-06-05 15:25 | P.PN ---
Subjective Progress Note Date: 06/05/23 Patient is a 62-year-old white male with little known past medical history. He may have history of schizoaffective disorder and reportedly follows at [facility]. He is currently homeless, living at a motel. Reportedly has a significant smoking history, but will not elaborate on this. After review of the medical record, patient had 2 ER visits on 06/01/2023. ER reports state that originally [facility] staff were concerned about the patient's wellbeing. Patient was evaluated, and discharged from the emergency room, but he returned later that afternoon because he had trouble returning to the hotel. After further workup, the patient was found to have multiple medical concerns, including some upper abdominal pain and abdominal distention. Abdominal ultrasound identified is severely heterogenous liver with multiple echogenic masslike lesions throughout. Metastatic disease was a primary consideration. There was gallbladder sludge without further evidence suggest acute cholecystitis. There was small to moderate volume ascites. A CT of the chest, abdomen, pelvis was ordered, however, on my evaluation the patient this had not been performed yet. The patient is refusing oral contrast. He also states that the radiation will kill him. The patient appears to be delirious. He is having multiple hallucinations, including auditory and visual hallucinations. He is yelling in the room at something that he calls a ghost. He is fairly agitated, and not receptive to care. He is suspicious of staff, and will not answer my questions. I am concerned about the patient's decision making capacity. He will not keep his supplemental oxygen, and is currently hypoxic. SpO2 is 70%. He is also tachycardic and hypertensive. Patient had received 2 mg of Haldol in the emergency room earlier. I did repeat with another additional dose of Haldol 5 mg IM once. I also started the patient on as needed Ativan for anxiety/agitation. This appears to calm the patient, he is more receptive to care. We were able to put his oxygen back on, and is currently requiring 6 L/min nasal cannula. He is dyspneic. He has audible wheezing. Chest x-ray was completed which showed a right-sided effusion and moderate pulmonary edema. There is a questionable right hilar density. CBC on arrival: WBC count 10.3, hemoglobin 10.7, hematocrit 34, platelets 155. BMP on arrival: Sodium 139, potassium 3.6, chloride 102, serum bicarb 34, BUN 33, creatinine 0.75, glucose 162. LFTs were elevated with an AST of 193, ALT of 129, ALP of 833. Total bilirubin 1.2. Albumin 2.1. Original urinalysis had moderate leukocytes and many bacteria, repeat sample looks fairly unremarkable. Patient is afebrile. Urine drug screen was all negative. I saw this patient on the medical floor and the patient was confused and he did not have any good insight on his condition. He is on 4 L of oxygen by nasal cannula with a pulse ox of 98%. Did not show any signs of any significant respiratory distress. However, his quite emaciated and cachectic. He was also seen by psychiatry and he was thought to have a component of delirium along with history of schizophrenia. The patient was asked to receive Zyprexa 2.5 mg at bedtime for psychosis and agitation and 2.5 mg 3 times daily on a as needed basis as needed. Meanwhile, the patient was seen by various other specialists including medical oncology and general surgery. Previously was canceled. The patient is going to undergo a liver biopsy by interventional radiology. Patient cannot sign consent and this needs to be worked on by social welfare clerk/case management. He may need a public guardian. BUN is 29 with a creatinine of 0.7. LFTs are still abnormal and elevated on today's evaluation. UA is negative. The white cell count at 9.5 with a hemoglobin 11.6. I also reviewed the CAT scan of the chest. The patient does have airspace disease in the lung base bilaterally along with areas of consolidation. This could be potentially a malignant process. The right lower lobe bronchus and the bronchus intermedius has been quite narrowed and the patient also has prominent mediastinal lymph nodes. Possibility of underlying primary bronchogenic carcinoma cannot be completely excluded. He is currently on Lasix 20 mg IV every 12 hours. His proBNP level was 1180. Procalcitonin level needs to be checked. I was able to review the CAT scan of the chest abdomen and pelvis that was done earlier this morning at around 6 AM. The patient has dependent consolidation of the lung base bilaterally, possible reactive hilar mass, narrowing of the right lower lobe bro nchus/bronchus intermedius, mediastinal lymphadenopathy, hepatomegaly and innumerable enhancing nodules in the liver consistent with metastatic disease and evidence of generalized volume overload to bilateral pleural effusion/mesenteric ascites and anasarca. Malignant ascitic fluid cannot be completely excluded. The patient also has a fracture of the T5 spine, pathology compression fracture cannot be completely excluded. On 06/04/2023, the patient is resting comfortably in a chair. No specific complaints. He is quite debilitated and weak and mentation is altered. Legal guardianship has been safe at this point in time. EGD has been canceled. Unable to complete the biopsy of the liver as the patient cannot sign his own consent. Respiratory status is stable. The patient remains on oxygen 4 L/min nasal cannula. His procalcitonin level was elevated. IV Unasyn was added. His potassium level is at 3.6. No agitation at this point in time. He has a sitter at the bedside. On 06/05/2023, no change in patient's condition. Awaiting public guardianship. The patient is currently on room air oxygen with a pulse ox of 93%. Remains on IV Unasyn. Labs from today show a WBC count 9.4, hemoglobin 10.8 and a platelet count of 144. BUN 32 with a creatinine of 0.6 and a sodium levels at 134 and a potassium level of 3.3. As mentioned, the procalcitonin level was elevated at 3.41. Objective - Vital Signs Vital signs: Vital Signs Temp 98.5 F 06/05/23 12:17 Pulse 69 06/05/23 14:00 Resp 16 06/05/23 14:00 BP 119/59 06/05/23 12:17 Pulse Ox 93 L 06/05/23 12:17 FiO2 Intake & Output 06/04/23 06/05/23 06/05/23 18:59 06:59 18:59 Intake Total 380 10 120 Output Total 300 600 Balance 380 -290 -480 Weight 56.7 kg Intake: IV 20 10 Invasive Line 2 20 10 Oral 360 120 Output: Urine 300 600 Other: Voiding Method External Catheter External Catheter External Catheter # Voids 1 1 - Exam Physical exam is limited, as the patient is acutely psychotic, currently on room air oxygen GENERAL EXAM: Anxious and agitated, yelling at the end of the bed, appears dyspneic with some accessory muscle use and audible wheezing. Cachectic appearance HEAD: Normocephalic and atraumatic EYES: Normal reaction of pupils, equal size.. CHEST: No chest wall deformity. LUNGS: Equal air entry, with diminished basilar lung sounds and inspiratory crackles CVS: S1 and S2 normal with no audible murmur, regular rhythm. No extra heart sounds. ABDOMEN: Marked abdominal distention, hepatomegaly. SPINE: No scoliosis or deformity SKIN: No rashes CENTRAL NERVOUS SYSTEM: No focal deficits, tone is normal in all 4 extremities. EXTREMITIES: There is 2-3+ bilateral lower extremity pitting edema. There is digital clubbing. Peripheral pulses palpable and peripheral extremities are warm. - Labs CBC & Chem 7: 06/05/23 08:31 06/05/23 08:31 Labs: Abnormal Lab Results - Last 24 Hours (Table) 06/03/23 06/05/23 06/05/23 Range/Units 10: 08: 08:31 RBC 3.46 L (4.30-5.90) m/uL Hgb 10.8 L (13.0-17.5) gm/dL Hct 33.6 L (39.0-53.0) % RDW 15.8 H (11.5-15.5) % Plt Count 144 L (150-450) k/uL Neutrophils # 8.6 H (1.3-7.7) k/uL Lymphocytes # 0.3 L (1.0-4.8) k/uL Sodium 134 L (137-145) mmol/L Potassium 3.3 L (3.5-5.1) mmol/L Carbon Dioxide 32 H (22-30) mmol/L BUN 32 H (9-20) mg/dL Glucose 136 H (74-99) mg/dL Calcium 8.1 L (8.4-10.2) mg/dL Delta Bilirubin 0.7 H (0.0-0.2) mg/dL AST 132 H (17-59) U/L ALT 124 H (4-49) U/L Alkaline Phosphatase 696 H (38-126) U/L Total Protein 4.8 L (6.3-8.2) g/dL Albumin 2.2 L (3.5-5.0) g/dL Methylmalonic Acid 0.45 H (<0.40) umol/L Assessment and Plan Plan: Acute delirium and schizoaffective disorder, patient is having marked auditory and visual hallucinations. He is resistive to care and suspicious of staff. Urine drug screen negative. Serum ETOH level < 10 the patient was seen by psychiatry and Zyprexa was added to the regimen. The patient is going to receive Zyprexa 2.5 mg at bedtime and 2.5 mg 3 times daily as needed for agitation. He has a sitter at the bedside. Acute hypoxemic respiratory failure, likely multifactorial, the patient has lower lobe consolidation and discontinued sequently for representation of underlying metastatic disease. There may be also a right infrahilar mass as there is considerable narrowing of the right lower lobe bronchus and bronchus intermedius in addition to mediastinal lymphadenopathy. Findings can be consistent with primary bronchogenic carcinoma especially with extensive lymphatic metastases to the patient was found to have on a CAT scan of the abdomen. The patient is currently on room air oxygen. No signs of any significant respiratory distress. Multiple echogenic liver masses, identified on abdominal ultrasound, and suspicious for metastatic disease. Transaminitis, possibly secondary to above Bilateral lower extremity edema, generalized anasarca and ascites Hypoalbuminemia T5 compression fracture, rule out pathologic fracture Moderate protein calorie malnutrition Severe hypokalemia, being replaced Normocytic normochromic anemia Sinus tachycardia, with frequent PACs, improved Suspect underlying chronic obstructive pulmonary disease Chronic ongoing tobacco dependence Homelessness Plan: Supplemental O2 to maintain saturation above 90%. Currently weaned down to room air oxygen IV Unasyn was started as the patient had an elevated procalcitonin level, will continue antibiotics for now The patient will need a liver biopsy to establish a final diagnosis. Malignancy is highly suspected. Will need to obtain a consent for this procedure. May need a public guardian. chemical worker/case management will work on this. The patient himself does not have decision-making capacity. Unable to do liver biopsy without the consent. EGD was also canceled. Continue DuoNebs [id number] Echocardiogram was ordered. The patient needs additional workup. Medical oncology consultation General surgery consultation. Psychiatric consultation appreciated Very poor prognosis based on above-mentioned comorbidities. Overall respiratory status stable.
--- NOTE | 2023-06-05 16:35 | P.PN ---
Subjective Principal diagnosis: patient seen and evaluated bedside. No new complaints, no overnight events. Objective - Vital Signs Vital signs: Vital Signs Temp 98.5 F 06/05/23 12:17 Pulse 73 06/05/23 15:45 Resp 16 06/05/23 14:00 BP 119/59 06/05/23 12:17 Pulse Ox 93 L 06/05/23 12:17 FiO2 Intake & Output 06/04/23 06/05/23 06/05/23 18:59 06:59 18:59 Intake Total 380 10 120 Output Total 300 600 Balance 380 -290 -480 Weight 56.7 kg Intake: IV 20 10 Invasive Line 2 20 10 Oral 360 120 Output: Urine 300 600 Other: Voiding Method External Catheter External Catheter External Catheter # Voids 1 1 - Exam Gen. no acute distress Cardiovascular regular rate rhythm Pulmonary nonlabored breathing Abdomen soft, distended, no guarding rebound tenderness - Labs CBC & Chem 7: 06/05/23 08:31 06/05/23 08:31 Labs: Abnormal Lab Results - Last 24 Hours (Table) 06/03/23 06/05/23 06/05/23 Range/Units 10:13 08:31 08:31 RBC 3.46 L (4.30-5.90) m/uL Hgb 10.8 L (13.0-17.5) gm/dL Hct 33.6 L (39.0-53.0) % RDW 15.8 H (11.5-15.5) % Plt Count 144 L (150-450) k/uL Neutrophils # 8.6 H (1.3-7.7) k/uL Lymphocytes # 0.3 L (1.0-4.8) k/uL Sodium 134 L (137-145) mmol/L Potassium 3.3 L (3.5-5.1) mmol/L Carbon Dioxide 32 H (22-30) mmol/L BUN 32 H (9-20) mg/dL Glucose 136 H (74-99) mg/dL Calcium 8.1 L (8.4-10.2) mg/dL Delta Bilirubin 0.7 H (0.0-0.2) mg/dL AST 132 H (17-59) U/L ALT 124 H (4-49) U/L Alkaline Phosphatase 696 H (38-126) U/L Total Protein 4.8 L (6.3-8.2) g/dL Albumin 2.2 L (3.5-5.0) g/dL Methylmalonic Acid 0.45 H (<0.40) umol/L Assessment and Plan Assessment: ASSESSMENT: 1. Abdominal pain 2. Hepatomegaly and liver nodules noted on CT. Concern for metastatic disease. 3. Elevated LFTs 4. Weight loss PLAN: -EGD pending for now. Patient unable to sign consent -Biopsy of liver mass by IR service unable to be completed. Patient could not sign consent and he was agitated unable to lay flat for testing
[2023-06-05] MEDS: POTASSIUM CHLORIDE ER 20 MEQ TAB.ER PO SCH (19:54)
[2023-06-05] MEDS: METOPROLOL TARTRATE 5 MG/5 ML VIAL IVP STA (22:27)
[2023-06-05 22:28] LABS: Glucose,Whole Blood 366 mg/dL (70-110)
[2023-06-05 22:32] LABS: Glucose,Whole Blood 191 mg/dL (70-110)
[2023-06-05 22:46] LABS: Glucose,Whole Blood 213 mg/dL (70-110)
--- NOTE | 2023-06-05 22:48 | XR ---
EXAM: XR Chest, 1 View CLINICAL HISTORY: ITS.REASON XR Reason: worsening SOB TECHNIQUE: Frontal view of the chest. COMPARISON: 06/03/23 FINDINGS: Lungs: Perihilar septal thickening, right greater than left. Right basilar airspace disease. Left lung is clear. Background of emphysema. Pleural space: Small to moderate right pleural effusion. No pneumothorax. Heart: Unremarkable. Normal heart size. Bones/joints: No acute fracture. No dislocation. IMPRESSION: 1. Perihilar septal thickening, right greater than left. Findings may represent pulmonary edema. 2. Right basilar airspace disease. This could represent pneumonia or compressive atelectasis. 3. Small to moderate right pleural effusion.
[2023-06-05 22:51] LABS: ABG Base Excess 9.5 mmol/L; ABG HCO3 33 mmol/L (21-25); ABG Oxygen Saturation 94.6 % (94-97); ABG PCO2 47 mmHg (35-45); ABG PH 7.46 (7.35-7.45); ABG PO2 71 mmHg (83-108); ABG TCO2 35 mmol/L (19-24); Allen Test Performed? Yes
[2023-06-05] MEDS: METOPROLOL TARTRATE 25 MG TAB PO STA (22:56)
[2023-06-05] MEDS ORDERED: QUEtiapine 25 MG TAB PO PRN (23:32)
--- NOTE | 2023-06-06 00:16 | P.PN ---
Subjective Patient is a pleasant 62 years old male with no known past medical history, he does not follow-up with PCP and he does not have family/friend support for him. Patient also was homeless and looks like he lives in a motel He was brought via EMS from his hotel. Usually he follow-up with [facility] but he started following for unknown., As per records looks like [facility] team helped with his lodging in the motel. Is not clear reports his main complaint as patient is poor historian. He states he came to the hospital because he is sick without specification. However there was reports of generalized weakness, questionable atrial problem and bilateral leg swelling. Patient lying in bed lethargic but does not look in distress. He is not tachypneic or tachycardic. No abdominal pain for him or vomiting or diarrhea. No other specific complaint However patient has right upper quadrant tenderness and bilateral pitting leg edema For me he denies alcohol or illicit drug. He states he smokes but he could not verify for how long or how much. During the encounter patient was slow to respond and sometimes his answer does not correlate with the questions asked Patient is hemodynamically stable, afebrile, he status post normal saline boluses CBC reviewed showing mild anemia of hemoglobin 11.6 INR 1.1, BMP is unremarkable except for low potassium of 2.6, magnesium 2.1 Troponin is negative, TSH within the reference range 0.8 Urine analysis is suspicious for infection versus dehydrated sample Urine drug screen is negative, alcohol level is negative Gallbladder ultrasound showing gallbladder sludge with no evidence of acute cholecystitis but there is hepatic masses suspicious for metastasis Patient remains confused, he lacked capacity per psychiatrist. section gang worker on the case to obtain guardianship He was lying in bed calm but easily gets agitated, he also is difficult to follow commands for procedures for example liver biopsy IR team are consulted for biopsy for his liver masses. . Carcinoma is also suspected given his mass and lymphadenopathy He has anasarca and he is on IV Lasix 20 mg twice daily Hematology/oncology team on the case CT of the abdomen chest and pelvis is reviewed by myself showing multiple liver metastasis, lymphadenopathy and basilar pulmonary consolidation with suspicion of infrahilar mass and compression fraction. He remains on Haldol as needed and Zyprexa standing and as needed doses Prognosis guarded 06/04/2023 Patient resting in bed comfortable trying to eat his food Mildly confused, he feels more calm after starting on Zyprexa. No new complaint. No chest pain Oxygen requirement down to 4 He has high procalcitonin. With chest x-ray showing bilateral basal infiltrate I agree with starting the patient on IV Unasyn section gang worker on the case, since patient has no capacity per psychiatrist and he is in the process of obtaining public guardian Patient will need liver biopsy by IR team for highly suspected malignant liver mass 06/05/2023 Patient getting agitated at times however currently he is calm He was tachycardic and tachypneic today Chest x-ray showing pulmonary edema versus pneumonia He is currently covered with Unasyn and IV Lasix Close tachycardia controlled with metoprolol Will continue monitoring Patient pending obtaining guardianship early next week as he like to make medical decision. Patient will require cardiac to give consent for liver biopsy and procedure/EGD section Objective - Vital Signs Vital signs: Vital Signs Temp 98.3 F 06/05/23 19:35 Pulse 110 H 06/05/23 19:35 Resp 16 06/05/23 19:35 BP 114/78 06/05/23 19:35 Pulse Ox 96 06/05/23 19:37 FiO2 Intake & Output 06/05/23 06/05/23 06/06/23 06:59 18:59 06:59 Intake Total 10 246 Output Total 300 600 Balance -290 -354 Weight 56.7 kg Intake: IV 10 Invasive Line 2 10 Oral 246 Output: Gastric Drainage 0 Urine 300 600 Stool 0 Urine/Stool Mix 0 Emesis 0 Oral Regurgitation 0 Other 0 Other: Voiding Method External Catheter External Catheter # Voids 1 0 # Bowel Movements 0 - Exam -GENERAL: The patient is awake and alert but confused, get easily agitated, not in any acute distress. Well developed, well nourished. HEENT: Pupils are round and equally reacting to light. EOMI. No scleral icterus. No conjunctival pallor. Normocephalic, atraumatic. No pharyngeal erythema. No thyromegaly. CARDIOVASCULAR: S1 and S2 present. No murmurs, rubs, or gallops. PULMONARY: Chest is clear to auscultation, no wheezing , no crackles. -ABDOMEN: Soft, mild RUQ tenderness, nondistended, normoactive bowel sounds. No palpable organomegaly. MUSCULOSKELETAL: No joint swelling or deformity. EXTREMITIES: No cyanosis, clubbing, or pedal edema. NEUROLOGICAL: Gross neurological examination did not reveal any focal deficits. SKIN: No rashes. no petechiae. - Labs CBC & Chem 7: 06/05/23 08:31 06/05/23 08:31 Labs: Abnormal Lab Results - Last 24 Hours (Table) 06/03/23 06/05/23 06/05/23 Range/Units 10:13 08:31 08:31 RBC 3.46 L (4.30-5.90) m/uL Hgb 10.8 L (13.0-17.5) gm/dL Hct 33.6 L (39.0-53.0) % RDW 15.8 H (11.5-15.5) % Plt Count 144 L (150-450) k/uL Neutrophils # 8.6 H (1.3-7.7) k/uL Lymphocytes # 0.3 L (1.0-4.8) k/uL Sodium 134 L (137-145) mmol/L Potassium 3.3 L (3.5-5.1) mmol/L Carbon Dioxide 32 H (22-30) mmol/L BUN 32 H (9-20) mg/dL Glucose 136 H (74-99) mg/dL Calcium 8.1 L (8.4-10.2) mg/dL Delta Bilirubin 0.7 H (0.0-0.2) mg/dL AST 132 H (17-59) U/L ALT 124 H (4-49) U/L Alkaline Phosphatase 696 H (38-126) U/L Total Protein 4.8 L (6.3-8.2) g/dL Albumin 2.2 L (3.5-5.0) g/dL Methylmalonic Acid 0.45 H (<0.40) umol/L Assessment and Plan Assessment: Transaminitis with right upper quadrant abdominal pain, with ultrasound showing multiple masses suspicious for metastatic disease Bilateral basal consolidation, with right infrahilar consolidation suspicious for bronchogenic carcinoma Bilateral pitting leg edema, Generalized weakness Metabolic/toxic encephalopathy Patient lacked capacity to make medical decision Moderate calorie protein malnutrition hypoalbuminemia asymptomatic bacteriuria. Repeat UA is normal History of schizophrenia Plan: Continue with IV Lasix IR team for liver biopsy Consult hematology/oncology team Pulmonary consult is appreciated Surgery team on the case Social work consult and PT/OT Labs and medication were reviewed.. Continue same treatment. Continue with symptomatic treatment. Resume home medication. Monitor labs and vitals. DVT and GI prophylaxis. Further recommendations as per clinical course of the patient DVT prophylaxis: SCD GI Prophylaxis: Pepcid PT/OT: Pending Prognosis is guarded I tried to call family. Patient has no family member in the chart.
[2023-06-06] MEDS: LORazepam 2 MG/ML INJ IV ONE (08:24)
[2023-06-06] MEDS: OLANZapine 10 MG VIAL IM ONE (08:24)
[2023-06-06] MEDS: FAMOTIDINE 20 MG TAB PO SCH (08:30)
[2023-06-06 10:41] LABS: African American GFR (CKD) >90 (>60 ml/min/1.73 sqM); Anion Gap 4 mmol/L; Blood Urea Nitrogen 35 mg/dL (9-20); Calcium 7.8 mg/dL (8.4-10.2); Carbon Dioxide 33 mmol/L (22-30); Chloride 99 mmol/L (98-107); Glucose 133 mg/dL (74-99); Non-African American GFR(CKD) >90 (>60 ml/min/1.73 sqM); Sodium 136 mmol/L (137-145)
[2023-06-06 10:43] LABS: Potassium 4.1 mmol/L (3.5-5.1)
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
--- NOTE | 2023-06-06 11:59 | P.PN ---
Subjective Progress Note Date: 06/06/23 CHIEF COMPLAINT: Altered mental status, liver nodules HISTORY OF PRESENT ILLNESS: The patient is a 62-year-old male with altered mental status. Patient has a sister. He is pending additional work-up including EGD and liver biopsy for malignancy work-up. He is resting comfortably without complaints. ROS: No reports of nausea and vomiting. No fevers or chills. No new chest pain. PHYSICAL EXAM: VITAL SIGNS: Reviewed CONSTITUTIONAL: Well developed and in no acute distress. EYES: Conjuctivae without sclera icterus. Extraocular movements grossly intact. HEAD, EARS, NOSE, THROAT: Moist buccal mucosa. Head is atraumatic, normocephalic. Hears conversational speech. No nasal drainage. RESPIRATORY: Non-labored respirations and equal bilateral excursions. CARDIOVASCULAR: Palpable 2+ radial pulses. ABDOMEN: No peritonitis MUSCULOSKELETAL: No gross deformity of the lower extremities noted. No clubbing. No cyanosis. SKIN: Good skin turgor. Well perfused. NEUROLOGIC: Cranial nerves II through XII grossly intact. No focal or lateralizing signs. PSYCH: Flat affect CLINICAL LABS: Reviewed. Hypokalemia now resolved. WBC normal. ASSESSMENT: 1. Altered mental status changes 2. Liver nodules 3. Lack of family/guardian 4. Abdominal pain PLAN: 1. Further diagnostic biopsies on hold pending guardian status. Objective - Vital Signs Vital signs: Vital Signs Temp 98.2 F 06/06/23 08:45 Pulse 92 06/06/23 08:49 Resp 16 06/06/23 08:45 BP 124/77 06/06/23 08:45 Pulse Ox 94 L 06/06/23 08:45 FiO2 Intake & Output 06/05/23 06/06/23 06/06/23 18:59 06:59 18:59 Intake Total 246 Output Total 600 1100 0 Balance -354 -1100 0 Weight 62.5 kg Intake: Oral 246 Output: Gastric Drainage 0 Urine 600 1100 Stool 0 0 0 Urine/Stool Mix 0 Emesis 0 Oral Regurgitation 0 Other 0 Other: Voiding Method External Catheter External Catheter External Catheter # Voids 0 1 # Bowel Movements 0 - Labs CBC & Chem 7: 06/05/23 08:31 06/06/23 09:43 Labs: Abnormal Lab Results - Last 24 Hours (Table) 06/03/23 06/05/23 06/05/23 Range/Units 10:13 22:27 22:30 ABG pH (7.35-7.45) ABG pCO2 (35-45) mmHg ABG pO2 (83-108) mmHg ABG HCO3 (21-25) mmol/L ABG Total CO2 (19-24) mmol/L Sodium (137-145) mmol/L Carbon Dioxide (22-30) mmol/L BUN (9-20) mg/dL Creatinine (0.66-1.25) mg/dL Glucose (74-99) mg/dL POC Glucose (mg/dL) 366 H 191 H (70-110) mg/dL Calcium (8.4-10.2) mg/dL Methylmalonic Acid 0.45 H (<0.40) umol/L 06/05/23 06/05/23 06/06/23 Range/Units 22:43 22:49 09:43 ABG pH 7.46 H (7.35-7.45) ABG pCO2 47 H (35-45) mmHg ABG pO2 71 L (83-108) mmHg ABG HCO3 33 H (21-25) mmol/L ABG Total CO2 35 H (19-24) mmol/L Sodium 136 L (137-145) mmol/L Carbon Dioxide 33 H (22-30) mmol/L BUN 35 H (9-20) mg/dL Creatinine 0.52 L (0.66-1.25) mg/dL Glucose 133 H (74-99) mg/dL POC Glucose (mg/dL) 213 H (70-110) mg/dL Calcium 7.8 L (8.4-10.2) mg/dL Methylmalonic Acid (<0.40) umol/L
[2023-06-06] MEDS: METOPROLOL SUCCINATE (ER) 25 MG TAB.ER.24H PO SCH (12:12)
--- NOTE | 2023-06-06 14:30 | P.PN ---
Subjective Progress Note Date: 06/06/23 Patient is a 62-year-old white male with little known past medical history. He may have history of schizoaffective disorder and reportedly follows at [facility]. He is currently homeless, living at a motel. Reportedly has a significant smoking history, but will not elaborate on this. After review of the medical record, patient had 2 ER visits on 06/01/2023. ER reports state that originally [facility] staff were concerned about the patient's wellbeing. Patient was evaluated, and discharged from the emergency room, but he returned later that afternoon because he had trouble returning to the hotel. After further workup, the patient was found to have multiple medical concerns, including some upper abdominal pain and abdominal distention. Abdominal ultrasound identified is severely heterogenous liver with multiple echogenic masslike lesions throughout. Metastatic disease was a primary consideration. There was gallbladder sludge without further evidence suggest acute cholecystitis. There was small to moderate volume ascites. A CT of the chest, abdomen, pelvis was ordered, however, on my evaluation the patient this had not been performed yet. The patient is refusing oral contrast. He also states that the radiation will kill him. The patient appears to be delirious. He is having multiple hallucinations, including auditory and visual hallucinations. He is yelling in the room at something that he calls a ghost. He is fairly agitated, and not receptive to care. He is suspicious of staff, and will not answer my questions. I am concerned about the patient's decision making capacity. He will not keep his supplemental oxygen, and is currently hypoxic. SpO2 is 70%. He is also tachycardic and hypertensive. Patient had received 2 mg of Haldol in the emergency room earlier. I did repeat with another additional dose of Haldol 5 mg IM once. I also started the patient on as needed Ativan for anxiety/agitation. This appears to calm the patient, he is more receptive to care. We were able to put his oxygen back on, and is currently requiring 6 L/min nasal cannula. He is dyspneic. He has audible wheezing. Chest x-ray was completed which showed a right-sided effusion and moderate pulmonary edema. There is a questionable right hilar density. CBC on arrival: WBC count 10.3, hemoglobin 10.7, hematocrit 34, platelets 155. BMP on arrival: Sodium 139, potassium 3.6, chloride 102, serum bicarb 34, BUN 33, creatinine 0.75, glucose 162. LFTs were elevated with an AST of 193, ALT of 129, ALP of 833. Total bilirubin 1.2. Albumin 2.1. Original urinalysis had moderate leukocytes and many bacteria, repeat sample looks fairly unremarkable. Patient is afebrile. Urine drug screen was all negative. I saw this patient on the medical floor and the patient was confused and he did not have any good insight on his condition. He is on 4 L of oxygen by nasal cannula with a pulse ox of 98%. Did not show any signs of any significant respiratory distress. However, his quite emaciated and cachectic. He was also seen by psychiatry and he was thought to have a component of delirium along with history of schizophrenia. The patient was asked to receive Zyprexa 2.5 mg at bedtime for psychosis and agitation and 2.5 mg 3 times daily on a as needed basis as needed. Meanwhile, the patient was seen by various other specialists including medical oncology and general surgery. Previously was canceled. The patient is going to undergo a liver biopsy by interventional radiology. Patient cannot sign consent and this needs to be worked on by public health social worker/case management. He may need a public guardian. BUN is 29 with a creatinine of 0.7. LFTs are still abnormal and elevated on today's evaluation. UA is negative. The white cell count at 9.5 with a hemoglobin 11.6. I also reviewed the CAT scan of the chest. The patient does have airspace disease in the lung base bilaterally along with areas of consolidation. This could be potentially a malignant process. The right lower lobe bronchus and the bronchus intermedius has been quite narrowed and the patient also has prominent mediastinal lymph nodes. Possibility of underlying primary bronchogenic carcinoma cannot be completely excluded. He is currently on Lasix 20 mg IV every 12 hours. His proBNP level was 1180. Procalcitonin level needs to be checked. I was able to review the CAT scan of the chest abdomen and pelvis that was done earlier this morning at around 6 AM. The patient has dependent consolidation of the lung base bilaterally, possible reactive hilar mass, narrowing of the right lower lobe bro nchus/bronchus intermedius, mediastinal lymphadenopathy, hepatomegaly and innumerable enhancing nodules in the liver consistent with metastatic disease and evidence of generalized volume overload to bilateral pleural effusion/mesenteric ascites and anasarca. Malignant ascitic fluid cannot be completely excluded. The patient also has a fracture of the T5 spine, pathology compression fracture cannot be completely excluded. On 06/04/2023, the patient is resting comfortably in a chair. No specific complaints. He is quite debilitated and weak and mentation is altered. Legal guardianship has been safe at this point in time. EGD has been canceled. Unable to complete the biopsy of the liver as the patient cannot sign his own consent. Respiratory status is stable. The patient remains on oxygen 4 L/min nasal cannula. His procalcitonin level was elevated. IV Unasyn was added. His potassium level is at 3.6. No agitation at this point in time. He has a sitter at the bedside. On 06/05/2023, no change in patient's condition. Awaiting public guardianship. The patient is currently on room air oxygen with a pulse ox of 93%. Remains on IV Unasyn. Labs from today show a WBC count 9.4, hemoglobin 10.8 and a platelet count of 144. BUN 32 with a creatinine of 0.6 and a sodium levels at 134 and a potassium level of 3.3. As mentioned, the procalcitonin level was elevated at 3.41. On 06/06/2023, the patient is calm and comfortable. Overnight, the patient was becoming agitated, confused, having episodes of hallucination and restlessness and trying to come out of bed. He was also reporting some increased shortness of breath. He was given Zyprexa 5 mg IV push and following that the patient is receiving Zyprexa 2.5 mg p.o. 3 times daily as needed and he also has some Zofran for increased nausea. He remains on IV Unasyn. Blood gas that was done yesterday showed a pH of 7.46 with a pCO2 of 47 and pO2 of 71 and the patient is currently on 3 L of oxygen by nasal cannula with a pulse ox of 96%. Repeat chest x-ray from yesterday shows worsening minimal volume loss and consolidation of the right lung base. There is some airspace disease along with some atelectasis and possibly a small right-sided pleural effusion. The patient is currently calm and comfortable resting in bed and he is currently on Lasix 20 mg IV every 12 hours. Objective - Vital Signs Vital signs: Vital Signs Temp 98.2 F 06/06/23 08:45 Pulse 92 06/06/23 08:49 Resp 16 06/06/23 08:45 BP 124/77 06/06/23 08:45 Pulse Ox 94 L 06/06/23 08:45 FiO2 Intake & Output 06/05/23 06/06/23 06/06/23 18:59 06:59 18:59 Intake Total 246 Output Total 600 1100 0 Balance -354 -1100 0 Weight 62.5 kg Intake: Oral 246 Output: Gastric Drainage 0 Urine 600 1100 Stool 0 0 0 Urine/Stool Mix 0 Emesis 0 Oral Regurgitation 0 Other 0 Other: Voiding Method External Catheter External Catheter External Catheter # Voids 0 1 # Bowel Movements 0 - Exam Physical exam is limited, as the patient is acutely psychotic, currently on room air oxygen GENERAL EXAM: Anxious and agitated, yelling at the end of the bed, appears dyspneic with some accessory muscle use and audible wheezing. Cachectic appearance HEAD: Normocephalic and atraumatic EYES: Normal reaction of pupils, equal size.. CHEST: No chest wall deformity. LUNGS: Equal air entry, with diminished basilar lung sounds and inspiratory crackles CVS: S1 and S2 normal with no audible murmur, regular rhythm. No extra heart sounds. ABDOMEN: Marked abdominal distention, hepatomegaly. SPINE: No scoliosis or deformity SKIN: No rashes CENTRAL NERVOUS SYSTEM: No focal deficits, tone is normal in all 4 extremities. EXTREMITIES: There is 2-3+ bilateral lower extremity pitting edema. There is digital clubbing. Peripheral pulses palpable and peripheral extremities are warm. - Labs CBC & Chem 7: 06/05/23 08:31 06/06/23 09:43 Labs: Abnormal Lab Results - Last 24 Hours (Table) 06/03/23 06/05/23 06/05/23 Range/Units 10:13 22:27 22:30 ABG pH (7.35-7.45) ABG pCO2 (35-45) mmHg ABG pO2 (83-108) mmHg ABG HCO3 (21-25) mmol/L ABG Total CO2 (19-24) mmol/L POC Glucose (mg/dL) 366 H 191 H (70-110) mg/dL Methylmalonic Acid 0.45 H (<0.40) umol/L 06/05/23 06/05/23 Range/Units 22:43 22:49 ABG pH 7.46 H (7.35-7.45) ABG pCO2 47 H (35-45) mmHg ABG pO2 71 L (83-108) mmHg ABG HCO3 33 H (21-25) mmol/L ABG Total CO2 35 H (19-24) mmol/L POC Glucose (mg/dL) 213 H (70-110) mg/dL Methylmalonic Acid (<0.40) umol/L Assessment and Plan Plan: Acute delirium and schizoaffective disorder, patient is having marked auditory and visual hallucinations. He is resistive to care and suspicious of staff. Urine drug screen negative. Serum ETOH level < 10 the patient was seen by psychiatry and Zyprexa was added to the regimen. The patient is going to receive Zyprexa 2.5 mg at bedtime and 2.5 mg 3 times daily as needed for agitation. He has a sitter at the bedside. Acute hypoxemic respiratory failure, likely multifactorial, the patient has lower lobe consolidation and discontinued sequently for representation of underlying metastatic disease. There may be also a right infrahilar mass as there is considerable narrowing of the right lower lobe bronchus and bronchus intermedius in addition to mediastinal lymphadenopathy. Findings can be consistent with primary bronchogenic carcinoma especially with extensive lymphatic metastases to the patient was found to have on a CAT scan of the abdomen. The patient is currently on room air oxygen. No signs of any significant respiratory distress. Multiple echogenic liver masses, identified on abdominal ultrasound, and suspicious for metastatic disease. Transaminitis, possibly secondary to above Bilateral lower extremity edema, generalized anasarca and ascites Hypoalbuminemia T5 compression fracture, rule out pathologic fracture Moderate protein calorie malnutrition Severe hypokalemia, being replaced Normocytic normochromic anemia Sinus tachycardia, with frequent PACs, improved Suspect underlying chronic obstructive pulmonary disease Chronic ongoing tobacco dependence Homelessness Plan: No change still awaiting guardianship to be established on this patient. No biopsies or further intervention could be done due to absence of any informed or legal consent to do biopsies. Supplemental O2 to maintain saturation above 90%. Currently weaned down to room air oxygen IV Unasyn was started as the patient had an elevated procalcitonin level, will continue antibiotics for now repeat procalcitonin level in a.m. The patient will need a liver biopsy to establish a final diagnosis. Malignancy is highly suspected. Will need to obtain a consent for this procedure. May need a public guardian. mental health social worker/case management will work on this. The patient himself does not have decision-making capacity. Unable to do liver biopsy without the consent. EGD was also canceled. Continue DuoNebs [id number] Echocardiogram was ordered. The patient needs additional workup. Medical oncology consultation General surgery consultation. Psychiatric consultation appreciated Very poor prognosis based on above-mentioned comorbidities. Overall respiratory status stable.
[2023-06-06 16:33] LABS: Glucose,Whole Blood 208 mg/dL (70-110)
[2023-06-06 20:07] LABS: Glucose,Whole Blood 475 mg/dL (70-110)
--- NOTE | 2023-06-07 06:04 | P.PN ---
Subjective Patient is a pleasant 62 years old male with no known past medical history, he does not follow-up with PCP and he does not have family/friend support for him. Patient also was homeless and looks like he lives in a motel He was brought via EMS from his hotel. Usually he follow-up with [facility] but he started following for unknown., As per records looks like [facility] team helped with his lodging in the motel. Is not clear reports his main complaint as patient is poor historian. He states he came to the hospital because he is sick without specification. However there was reports of generalized weakness, questionable atrial problem and bilateral leg swelling. Patient lying in bed lethargic but does not look in distress. He is not tachypneic or tachycardic. No abdominal pain for him or vomiting or diarrhea. No other specific complaint However patient has right upper quadrant tenderness and bilateral pitting leg edema For me he denies alcohol or illicit drug. He states he smokes but he could not verify for how long or how much. During the encounter patient was slow to respond and sometimes his answer does not correlate with the questions asked Patient is hemodynamically stable, afebrile, he status post normal saline boluses CBC reviewed showing mild anemia of hemoglobin 11.6 INR 1.1, BMP is unremarkable except for low potassium of 2.6, magnesium 2.1 Troponin is negative, TSH within the reference range 0.8 Urine analysis is suspicious for infection versus dehydrated sample Urine drug screen is negative, alcohol level is negative Gallbladder ultrasound showing gallbladder sludge with no evidence of acute cholecystitis but there is hepatic masses suspicious for metastasis Patient remains confused, he lacked capacity per psychiatrist. deck worker on the case to obtain guardianship He was lying in bed calm but easily gets agitated, he also is difficult to follow commands for procedures for example liver biopsy IR team are consulted for biopsy for his liver masses. . Carcinoma is also suspected given his mass and lymphadenopathy He has anasarca and he is on IV Lasix 20 mg twice daily Hematology/oncology team on the case CT of the abdomen chest and pelvis is reviewed by myself showing multiple liver metastasis, lymphadenopathy and basilar pulmonary consolidation with suspicion of infrahilar mass and compression fraction. He remains on Haldol as needed and Zyprexa standing and as needed doses Prognosis guarded 06/04/2023 Patient resting in bed comfortable trying to eat his food Mildly confused, he feels more calm after starting on Zyprexa. No new complaint. No chest pain Oxygen requirement down to 4 He has high procalcitonin. With chest x-ray showing bilateral basal infiltrate I agree with starting the patient on IV Unasyn deck worker on the case, since patient has no capacity per psychiatrist and he is in the process of obtaining public guardian Patient will need liver biopsy by IR team for highly suspected malignant liver mass 06/05/2023 Patient getting agitated at times however currently he is calm He was tachycardic and tachypneic today Chest x-ray showing pulmonary edema versus pneumonia He is currently covered with Unasyn and IV Lasix Close tachycardia controlled with metoprolol Will continue monitoring Patient pending obtaining guardianship early next week as he like to make medical decision. Patient will require cardiac to give consent for liver biopsy and procedure/EGD section 06/06/2023 Patient is a still in the process of obtaining guardianship as he will require procedure for example liver biopsy for his multiple liver nodules He is calm lying in bed, confused, he lacks capacity, he gets agitated at times, sitter at bedside. He is on IV Lasix 20 mg twice daily and IV Unasyn for possible pneumonia He was started on metoprolol for sinus tachycardia Objective - Vital Signs Vital signs: Vital Signs Temp 98.2 F 06/06/23 16:00 Pulse 75 06/06/23 16:00 Resp 16 06/06/23 16:00 BP 123/83 06/06/23 16:00 Pulse Ox 95 06/06/23 16:00 FiO2 Intake & Output 06/05/23 06/06/23 06/06/23 18:59 06:59 18:59 Intake Total 246 900 Output Total 600 1100 900 Balance -354 -1100 0 Weight 62.5 kg Intake: Oral 246 900 Output: Gastric Drainage 0 Urine 600 1100 900 Stool 0 0 0 Urine/Stool Mix 0 Emesis 0 Oral Regurgitation 0 Other 0 Other: Voiding Method External Catheter External Catheter External Catheter # Voids 0 1 # Bowel Movements 0 - Exam -GENERAL: The patient is awake and alert but confused, get easily agitated, not in any acute distress. Well developed, well nourished. HEENT: Pupils are round and equally reacting to light. EOMI. No scleral icterus. No conjunctival pallor. Normocephalic, atraumatic. No pharyngeal erythema. No thyromegaly. CARDIOVASCULAR: S1 and S2 present. No murmurs, rubs, or gallops. PULMONARY: Chest is clear to auscultation, no wheezing , no crackles. -ABDOMEN: Soft, mild RUQ tenderness, nondistended, normoactive bowel sounds. No palpable organomegaly. MUSCULOSKELETAL: No joint swelling or deformity. EXTREMITIES: No cyanosis, clubbing, or pedal edema. NEUROLOGICAL: Gross neurological examination did not reveal any focal deficits. SKIN: No rashes. no petechiae. - Labs CBC & Chem 7: 06/05/23 08:31 06/06/23 09:43 Labs: Abnormal Lab Results - Last 24 Hours (Table) 06/05/23 06/05/23 06/05/23 Range/Units 22:27 22:30 22:43 ABG pH (7.35-7.45) ABG pCO2 (35-45) mmHg ABG pO2 (83-108) mmHg ABG HCO3 (21-25) mmol/L ABG Total CO2 (19-24) mmol/L Sodium (137-145) mmol/L Carbon Dioxide (22-30) mmol/L BUN (9-20) mg/dL Creatinine (0.66-1.25) mg/dL Glucose (74-99) mg/dL POC Glucose (mg/dL) 366 H 191 H 213 H (70-110) mg/dL Calcium (8.4-10.2) mg/dL 06/05/23 06/06/23 06/06/23 Range/Units 22:49 09:43 16:31 ABG pH 7.46 H (7.35-7.45) ABG pCO2 47 H (35-45) mmHg ABG pO2 71 L (83-108) mmHg ABG HCO3 33 H (21-25) mmol/L ABG Total CO2 35 H (19-24) mmol/L Sodium 136 L (137-145) mmol/L Carbon Dioxide 33 H (22-30) mmol/L BUN 35 H (9-20) mg/dL Creatinine 0.52 L (0.66-1.25) mg/dL Glucose 133 H (74-99) mg/dL POC Glucose (mg/dL) 208 H (70-110) mg/dL Calcium 7.8 L (8.4-10.2) mg/dL Assessment and Plan Assessment: Transaminitis with right upper quadrant abdominal pain, with ultrasound showing multiple masses suspicious for metastatic disease Bilateral basal consolidation, with right infrahilar consolidation suspicious for bronchogenic carcinoma Bilateral pitting leg edema, Generalized weakness Metabolic/toxic encephalopathy Patient lacked capacity to make medical decision Moderate calorie protein malnutrition hypoalbuminemia asymptomatic bacteriuria. Repeat UA is normal History of schizophrenia Plan: Continue with IV Lasix IR team for liver biopsy Consult hematology/oncology team Pulmonary consult is appreciated Surgery team on the case Social work consult and PT/OT Labs and medication were reviewed.. Continue same treatment. Continue with symptomatic treatment. Resume home medication. Monitor labs and vitals. DVT and GI prophylaxis. Further recommendations as per clinical course of the patient DVT prophylaxis: SCD GI Prophylaxis: Pepcid PT/OT: Pending Prognosis is guarded I tried to call family. Patient has no family member in the chart.
--- NOTE | 2023-06-07 10:38 | CA ---
Transthoracic Echo Report Name: Jer Amaya Age: 62 Gender: M : 1960 Exam Date: 06/02/2023 14:45 Exam Location: [facility] Ht (in): 72 Wt (lb): 125 Ordering Physician: Timmy Stewart MD Attending/Referring Phys: [id number], aPt Real Estate Management Specialist Yasmine Keenan RDCS Procedure CPT: Indications: Rule out heart disease Cardiac Hx: Technical Quality: Good Contrast 1: Total Dose (mL): Contrast 2: Total Dose (mL): MEASUREMENTS (Male / Female) Normal Values 2D ECHO LV Diastolic Diameter PLAX 3.9 cm 4.2 - 5.9 / 3.9 - 5.3 cm LV Systolic Diameter PLAX 2.7 cm IVS Diastolic Thickness 1.3 cm 0.6 - 1.0 / 0.6 - 0.9 cm LVPW Diastolic Thickness 1.3 cm 0.6 - 1.0 / 0.6 - 0.9 cm LV Relative Wall Thickness 0.7 RV Internal Dim ED PLAX 3.3 cm LA Systolic Diameter LX 3.7 cm 3.0 - 4.0 / 2.7 - 3.8 cm LV Diastolic Volume MOD BP 75.7 cm??? 67 - 155 / 56 - 104 cm??? LV Systolic Volume MOD BP 35.9 cm??? - 58 / 19 - 49 cm??? LV Ejection Fraction MOD BP 52.6 % >= 55 % LV Cardiac Index MOD BP 2541.0 cm???/min???m??? LV Diastolic Volume MOD 4C 56.3 cm??? LV Systolic Volume MOD 4C 25.3 cm??? LV Ejection Fraction MOD 4C 55.0 % LV Cardiac Index MOD 4C 1974.1 cm???/min???m??? LV Diastolic Length 4C 8.0 cm LV Systolic Length 4C 7.4 cm LV Diastolic Volume MOD 2C 101.5 cm??? LV Systolic Volume MOD 2C 46.7 cm??? LV Ejection Fraction MOD 2C 53.9 % LV Cardiac Index MOD 2C 3492.1 cm???/min???m??? LV Diastolic Length 2C 8.1 cm LV Systolic Length 2C 6.4 cm LA Volume 47.1 cm??? 18 - 58 / 22 - 52 cm??? LA Volume Index 28.1 cm???/m??? 16 - 28 cm???/m??? M-MODE Aortic Root Diameter MM 3.8 cm DOPPLER AV Peak Velocity 173.5 cm/s AV Peak Gradient 12.0 mmHg MV Area PHT 8.7 cm??? MV Deceleration Time 197.8 ms TR Peak Velocity 333.5 cm/s TR Peak Gradient 44.5 mmHg Right Ventricular Systolic Press 49.0 mmHg FINDINGS Left Ventricle Left ventricular ejection fraction is estimated at 45-50 %. Small left ventricular cavity. Mildly increased septal wall thickness. Mildly decreased left ventricular ejection fraction. No obvious regional wall motion abnormalities. No obvious regional wall motion abnormalities. Right Ventricle Mild right ventricular dilatation. Moderate pulmonary hypertension. Right ventricular systolic pressure estimated at 49 mm hg. Right Atrium Normal right atrial size. Left Atrium Normal left atrial size. Mitral Valve Structurally normal mitral valve. Mild mitral regurgitation. Aortic Valve Trileaflet aortic valve. Thickened aortic valve without stenosis. Tricuspid Valve Structurally normal tricuspid valve. Mild tricuspid regurgitation. Pulmonic Valve Structurally normal pulmonic valve. No pulmonic regurgitation. Pericardium Minimal pericardial effusion . No pleural effusion. Aorta Mild aortic dilatation at the level of the sinuses of valsalva 38 mm CONCLUSIONS Mild LV dysfunction with an ejection fraction of 45-50% Moderate pulmonary hypertension Mild mitral and tricuspid regurgitation Previewed by: Dr. Raghu Wharton MD (Electronically Signed) Final Date: 07 June 2023 10:37
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
--- NOTE | 2023-06-07 12:14 | P.PN ---
Subjective Progress Note Date: 06/07/23 CHIEF COMPLAINT: Weakness and altered mental status HISTORY OF PRESENT ILLNESS: Surgical service following regards to patient's abdominal pain. Liver masslike lesions noted on ultrasound. Still waiting p atient to be assigned a guardian. Patient lying in bed comfortably without complaints. No nausea or vomiting reported. Afebrile. PHYSICAL EXAM: VITAL SIGNS: Reviewed. GENERAL: no acute distress. ABDOMEN: Soft. Nondistended. Hepatomegaly. Firmness noted with palpation right upper quadrant NEUROLOGIC: Confused ASSESSMENT: 1. Abdominal pain 2. Hepatomegaly and liver nodules noted on CT. Concern for metastatic disease. 3. Elevated LFTs 4. Weight loss PLAN: -Awaiting patient to be assigned a guardian. Patient followed by social work -EGD and liver biopsy currently on hold until patient is assigned a guardian -Continue regular diet Physician Supervisor Mapping note has been reviewed by physician. Signing provider agrees with the documented findings, assessment, and plan of care. Objective - Vital Signs Vital signs: Vital Signs Temp 98.1 F 06/07/23 04:00 Pulse 103 H 06/07/23 12:00 Resp 24 06/07/23 12:00 BP 122/69 06/07/23 04:00 Pulse Ox 88 L 06/07/23 12:00 FiO2 Intake & Output 06/06/23 06/07/23 06/07/23 18:59 06:59 18:59 Intake Total 1020 240 Output Total 900 600 Balance 120 -360 Weight 55.5 kg Intake: Oral 1020 240 Output: Urine 900 600 Stool 0 0 Other: Voiding Method External Catheter External Catheter # Voids 2 - Labs CBC & Chem 7: 06/05/23 08:31 06/06/23 09:43 Labs: Abnormal Lab Results - Last 24 Hours (Table) 06/06/23 06/06/23 06/06/23 Range/Units 14:49 16:31 20:06 POC Glucose (mg/dL) 208 H 475 H (70-110) mg/dL Procalcitonin 3.39 H (0.02-0.09) ng/mL
--- NOTE | 2023-06-07 14:06 | P.PN ---
Subjective Progress Note Date: 06/07/23 Patient is a pleasant 62 years old male with no known past medical history, he does not follow-up with PCP and he does not have family/friend support for him. Patient also was homeless and looks like he lives in a motel He was brought via EMS from his hotel. Usually he follow-up with [facility] but he started following for unknown., As per records looks like [facility] team helped with his lodging in the motel. Is not clear reports his main complaint as patient is poor historian. He states he came to the hospital because he is sick without specification. However there was reports of generalized weakness, questionable atrial problem and bilateral leg swelling. Patient lying in bed lethargic but does not look in distress. He is not tachypneic or tachycardic. No abdominal pain for him or vomiting or diarrhea. No other specific complaint However patient has right upper quadrant tenderness and bilateral pitting leg edema For me he denies alcohol or illicit drug. He states he smokes but he could not verify for how long or how much. During the encounter patient was slow to respond and sometimes his answer does not correlate with the questions asked Patient is hemodynamically stable, afebrile, he status post normal saline boluses CBC reviewed showing mild anemia of hemoglobin 11.6 INR 1.1, BMP is unremarkable except for low potassium of 2.6, magnesium 2.1 Troponin is negative, TSH within the reference range 0.8 Urine analysis is suspicious for infection versus dehydrated sample Urine drug screen is negative, alcohol level is negative Gallbladder ultrasound showing gallbladder sludge with no evidence of acute cholecystitis but there is hepatic masses suspicious for metastasis Patient remains confused, he lacked capacity per psychiatrist. parking worker on the case to obtain guardianship He was lying in bed calm but easily gets agitated, he also is difficult to follow commands for procedures for example liver biopsy IR team are consulted for biopsy for his liver masses. . Carcinoma is also suspected given his mass and lymphadenopathy He has anasarca and he is on IV Lasix 20 mg twice daily Hematology/oncology team on the case CT of the abdomen chest and pelvis is reviewed by myself showing multiple liver metastasis, lymphadenopathy and basilar pulmonary consolidation with suspicion of infrahilar mass and compression fraction. He remains on Haldol as needed and Zyprexa standing and as needed doses Prognosis guarded 06/04/2023 Patient resting in bed comfortable trying to eat his food Mildly confused, he feels more calm after starting on Zyprexa. No new complaint. No chest pain Oxygen requirement down to 4 He has high procalcitonin. With chest x-ray showing bilateral basal infiltrate I agree with starting the patient on IV Unasyn parking worker on the case, since patient has no capacity per psychiatrist and he is in the process of obtaining public guardian Patient will need liver biopsy by IR team for highly suspected malignant liver mass 06/05/2023 Patient getting agitated at times however currently he is calm He was tachycardic and tachypneic today Chest x-ray showing pulmonary edema versus pneumonia He is currently covered with Unasyn and IV Lasix Close tachycardia controlled with metoprolol Will continue monitoring Patient pending obtaining guardianship early next week as he like to make medical decision. Patient will require cardiac to give consent for liver biopsy and procedure/EGD section 06/06/2023 Patient is a still in the process of obtaining guardianship as he will require procedure for example liver biopsy for his multiple liver nodules He is calm lying in bed, confused, he lacks capacity, he gets agitated at times, sitter at bedside. He is on IV Lasix 20 mg twice daily and IV Unasyn for possible pneumonia He was started on metoprolol for sinus tachycardia 06/06. Patient seen and examined. Patient refusing labs. Patient refusing to be questioned or answer any questions REVIEW OF SYSTEMS: As mentioned above PHYSICAL EXAMINATION: GENERAL: The patient is alert to self, chronically ill looking HEENT: Refused to be examined CARDIOVASCULAR: Refused to be examined PULMONARY: Refused to be examined ABDOMEN: Refused to be examined MUSCULOSKELETAL: No joint swelling or deformity. EXTREMITIES: No cyanosis, clubbing, or pedal edema. NEUROLOGICAL: Refused to be examined SKIN: No rashes. Assessment and plan Acute delirium and schizoaffective disorder Acute hypoxemic respiratory failure, likely multifactorial, the patient has lower lobe consolidation and discontinued sequently for representation of underlying metastatic disease. Multiple echogenic liver masses, identified on abdominal ultrasound, and suspicious for metastatic disease. Transaminitis Bilateral lower extremity edema, generalized anasarca and ascites Hypoalbuminemia T5 compression fracture, rule out pathologic fracture Moderate protein calorie malnutrition Severe hypokalemia Normocytic normochromic anemia Sinus tachycardia, with frequent PACs, improved Suspect underlying chronic obstructive pulmonary disease Chronic ongoing tobacco dependence Homelessness Monitor vital signs Monitor CBC Monitor CMP Continue telemetry monitoring Continue Lopressor Case management on board, currently in the process of getting guardianship patient has not capacity IR team for liver biopsy Consult hematology/oncology team Pulmonary following Labs and medication were reviewed.. Continue same treatment. Continue with symptomatic treatment. Resume home medication. Monitor labs and vitals. DVT and GI prophylaxis. Further recommendations as per clinical course of the patient Dictation was produced using [employer] dictation software. please excuse any grammatical, word or spelling errors. Objective - Vital Signs Vital signs: Vital Signs Temp 98.1 F 06/07/23 04:00 Pulse 60 06/07/23 04:00 Resp 16 06/07/23 04:00 BP 122/69 06/07/23 04:00 Pulse Ox 97 06/07/23 04:00 FiO2 Intake & Output 06/06/23 06/07/23 06/07/23 18:59 06:59 18:59 Intake Total 1020 240 Output Total 900 600 Balance 120 -360 Weight 55.5 kg Intake: Oral 1020 240 Output: Urine 900 600 Stool 0 0 Other: Voiding Method External Catheter External Catheter - Labs CBC & Chem 7: 06/05/23 08:31 06/06/23 09:43 Labs: Abnormal Lab Results - Last 24 Hours (Table) 06/06/23 06/06/23 06/06/23 Range/Units 14:49 16:31 20:06 POC Glucose (mg/dL) 208 H 475 H (70-110) mg/dL Procalcitonin 3.39 H (0.02-0.09) ng/mL
[2023-06-07 14:39] LABS: % Iron Saturation 29.03 (15.00-50.00); Iron 54 UG/DL (65-175); Total Iron Binding Capacity 186 UG/DL (228-460)
[2023-06-07 14:49] VITALS: BMI 16.6
--- NOTE | 2023-06-07 16:58 | P.PN ---
Subjective Progress Note Date: 06/07/23 Principal diagnosis: Acute delirium with schizoaffective disorder and acute hypoxic respiratory failure, multifactorial Patient is a 62-year-old white male with little known past medical history. He may have history of schizoaffective disorder and reportedly follows at [facility]. He is currently homeless, living at a motel. Reportedly has a significant smoking history, but will not elaborate on this. After review of the medical record, patient had 2 ER visits on 06/01/2023. ER reports state that originally [facility] staff were concerned about the patient's wellbeing. Patient was evaluated, and discharged from the emergency room, but he returned later that afternoon because he had trouble returning to the hotel. After further workup, the patient was found to have multiple medical concerns, including some upper abdominal pain and abdominal distention. Abdominal ultrasound identified is severely heterogenous liver with multiple echogenic masslike lesions throughout. Metastatic disease was a primary consideration. There was gallbladder sludge without further evidence suggest acute cholecystitis. There was small to moderate volume ascites. A CT of the chest, abdomen, pelvis was ordered, however, on my evaluation the patient this had not been performed yet. The patient is refusing oral contrast. He also states that the radiation will kill him. The patient appears to be delirious. He is having multiple hallucinations, including auditory and visual hallucinations. He is yelling in the room at something that he calls a ghost. He is fairly agitated, and not receptive to care. He is suspicious of staff, and will not answer my questions. I am concerned about the patient's decision making capacity. He will not keep his supplemental oxygen, and is currently hypoxic. SpO2 is 70%. He is also tachycardic and hypertensive. Patient had received 2 mg of Haldol in the emergency room earlier. I did repeat with another additional dose of Haldol 5 mg IM once. I also started the patient on as needed Ativan for anxiety/agitation. This appears to calm the patient, he is more receptive to care. We were able to put his oxygen back on, and is currently requiring 6 L/min nasal cannula. He is dyspneic. He has audible wheezing. Chest x-ray was completed which showed a right-sided effusion and moderate pulmonary edema. There is a questionable right hilar density. CBC on arrival: WBC count 10.3, hemoglobin 10.7, hematocrit 34, platelets 155. BMP on arrival: Sodium 139, potassium 3.6, chloride 102, serum bicarb 34, BUN 33, creatinine 0.75, glucose 162. LFTs were elevated with an AST of 193, ALT of 129, ALP of 833. Total bilirubin 1.2. Albumin 2.1. Original urinalysis had moderate leukocytes and many bacteria, repeat sample looks fairly unremarkable. Patient is afebrile. Urine drug screen was all negative. I saw this patient on the medical floor and the patient was confused and he did not have any good insight on his condition. He is on 4 L of oxygen by nasal cannula with a pulse ox of 98%. Did not show any signs of any significant respiratory distress. However, his quite emaciated and cachectic. He was also seen by psychiatry and he was thought to have a component of delirium along with history of schizophrenia. The patient was asked to receive Zyprexa 2.5 mg at bedtime for psychosis and agitation and 2.5 mg 3 times daily on a as needed basis as needed. Meanwhile, the patient was seen by various other specialists including medical oncology and general surgery. Previously was canceled. The patient is going to undergo a liver biopsy by interventional radiology. Patient cannot sign consent and this needs to be worked on by social work lecturer/case management. He may need a public guardian. BUN is 29 with a creatinine of 0.7. LFTs are still abnormal and elevated on today's evaluation. UA is negative. The white cell count at 9.5 with a hemoglobin 11.6. I also reviewed the CAT scan of the chest. The patient does have airspace disease in the lung base bilaterally along with areas of consolidation. This could be potentially a malignant process. The right lower lobe bronchus and the bronchus intermedius has been quite narrowed and the patient also has prominent mediastinal lymph nodes. Possibility of underlying primary bronchogenic carcinoma cannot be completely excluded. He is currently on Lasix 20 mg IV every 12 hours. His proBNP level was 1180. Procalcitonin level needs to be checked. I was able to review the CAT scan of the chest abdomen and pelvis that [facility]. The patient has dependent consolidation of the lung base bilaterally, possible reactive hilar mass, narrowing of the right lower lobe bronchus/bronchus intermedius, mediastinal lymphadenopathy, hepatomegaly and innumerable enhancing nodules in the liver consistent with metastatic disease a nd evidence of generalized volume overload to bilateral pleural effusion/mesenteric ascites and anasarca. Malignant ascitic fluid cannot be completely excluded. The patient also has a fracture of the T5 spine, pathology compression fracture cannot be completely excluded. On 06/04/2023, the patient is resting comfortably in a chair. No specific complaints. He is quite debilitated and weak and mentation is altered. Legal guardianship has been safe at this point in time. EGD has been canceled. Unable to complete the biopsy of the liver as the patient cannot sign his own consent. Respiratory status is stable. The patient remains on oxygen 4 L/min nasal cannula. His procalcitonin level was elevated. IV Unasyn was added. His potassium level is at 3.6. No agitation at this point in time. He has a sitter at the bedside. On 06/05/2023, no change in patient's condition. Awaiting public guardianship. The patient is currently on room air oxygen with a pulse ox of 93%. Remains on IV Unasyn. Labs from today show a WBC count 9.4, hemoglobin 10.8 and a platelet count of 144. BUN 32 with a creatinine of 0.6 and a sodium levels at 134 and a potassium level of 3.3. As mentioned, the procalcitonin level was elevated at 3.41. On 06/06/2023, the patient is calm and comfortable. Overnight, the patient was becoming agitated, confused, having episodes of hallucination and restlessness and trying to come out of bed. He was also reporting some increased shortness of breath. He was given Zyprexa 5 mg IV push and following that the patient is receiving Zyprexa 2.5 mg p.o. 3 times daily as needed and he also has some Zofran for increased nausea. He remains on IV Unasyn. Blood gas that was done yesterday showed a pH of 7.46 with a pCO2 of 47 and pO2 of 71 and the patient is currently on 3 L of oxygen by nasal cannula with a pulse ox of 96%. Repeat chest x-ray from yesterday shows worsening minimal volume loss and consolidation of the right lung base. There is some airspace disease along with some atelectasis and possibly a small right-sided pleural effusion. The patient is currently calm and comfortable resting in bed and he is currently on Lasix 20 mg IV every 12 hours. Patient was reevaluated today on 06/07/2023, patient is basically about the same, remains confused and agitated easily, and there seems to be a picture of bronchogenic carcinoma with metastasis, involving the liver. This point in time the patient is not a candidate for any intervention, not to mention the patient is in the process of getting a legal guardian, and after reviewing the whole chart, I believe the patient is not a candidate even for biopsy, I for 1 would recommend basically comfort care measures and hospice. Patient is a failure to thrive, and he does have significant findings suggestive of metastatic disease on the CT of the chest, there is evidence of multiple nodules in the liver, there is also evidence of prominent enlarged mediastinal lymph nodes largest in the pretracheal area. There is also evidence of pleural effusions and mesenteric ascites and anasarca. In addition there is a T5 compression fracture. Objective - Vital Signs Vital signs: Vital Signs Temp 98.1 F 06/07/23 04:00 Pulse 103 H 06/07/23 12:00 Resp 24 06/07/23 12:00 BP 122/69 06/07/23 04:00 Pulse Ox 88 L 06/07/23 12:00 FiO2 Intake & Output 06/06/23 06/07/23 06/07/23 18:59 06:59 18:59 Intake Total 1020 240 Output Total 900 600 240 Balance 120 -360 -240 Weight 55.5 kg 55.5 kg Intake: Oral 1020 240 Output: Urine 900 600 Stool 0 0 240 Other: Voiding Method External Catheter External Catheter Diaper # Voids 2 - Exam Physical exam is limited patient is quite agitated and gets physically abusive patient looks extremely cachectic. And chronically ill. GENERAL EXAM: Anxious and agitated, HEAD: Normocephalic and atraumatic EYES: Normal reaction of pupils, equal size.. CHEST: No chest wall deformity. LUNGS: Equal air entry, with diminished basilar lung sounds and inspiratory crackles CVS: S1 and S2 normal with no audible murmur, regular rhythm. No extra heart sounds. ABDOMEN: Marked abdominal distention, hepatomegaly. SPINE: No scoliosis or deformity SKIN: No rashes CENTRAL NERVOUS SYSTEM: Cannot fully assess. EXTREMITIES: There is 2-3+ bilateral lower extremity pitting edema. Positive cl ubbing - Labs CBC & Chem 7: 06/05/23 08:31 06/06/23 09:43 Labs: Abnormal Lab Results - Last 24 Hours (Table) 06/03/23 06/06/23 06/06/23 Range/Units 10:13 14:49 20:06 POC Glucose (mg/dL) 475 H (70-110) mg/dL Iron 54 L (65-175) UG/DL TIBC 186 L (228-460) UG/DL Transferrin 133.0 L (204.0-354.0) mg/dL Ferritin 619.0 H (22.0-322.0) ng/mL Procalcitonin 3.39 H (0.02-0.09) ng/mL Assessment and Plan Assessment: Impression: Strongly suspect metastatic disease most likely primary is bronchogenic carcinoma with multiple distant areas of metastasis including liver Acute delirium and schizoaffective disorder Bilateral pleural effusions and ascites most likely malignant in nature. T5 compression fracture Anasarca and ascites Moderate protein calorie malnutrition Suspect underlying COPD Chronic ongoing tobacco dependence Recommendations: continue present supportive care measures Continue antibiotics Continue updrafts Strongly recommend hospice care for this patient. Patient is not even a good candidate for any biopsy however If the biopsy is to be considered, I would recommend liver biopsy to establish and confirm diagnosis of malignancy. Will continue to follow Time with Patient: Less than 30
[2023-06-07 17:13] LABS: Glucose,Whole Blood 177 mg/dL (70-110)
--- NOTE | 2023-06-07 18:23 | P.PN ---
Subjective Progress Note Date: 06/07/23 Principal diagnosis: Liver mass, LAD, consolidation in the lungs In f/u today pt patient states he does not want to be bothered. He would not allow a physical exam. Objective - Vital Signs Vital signs: Vital Signs Temp 98.1 F 06/07/23 04:00 Pulse 103 H 06/07/23 12:00 Resp 24 06/07/23 12:00 BP 122/69 06/07/23 04:00 Pulse Ox 88 L 06/07/23 12:00 FiO2 Intake & Output 06/06/23 06/07/23 06/07/23 18:59 06:59 18:59 Intake Total 1020 240 Output Total 900 600 Balance 120 -360 Weight 55.5 kg Intake: Oral 1020 240 Output: Urine 900 600 Stool 0 0 Other: Voiding Method External Catheter External Catheter - Constitutional General appearance: Present: thin - Respiratory Details: Respirations unlabored at rest - Psychiatric Psychiatric Comment(s): Patient is alert, irritable demeanor - Labs CBC & Chem 7: 06/05/23 08:31 06/06/23 09:43 Labs: Abnormal Lab Results - Last 24 Hours (Table) 06/06/23 06/06/23 06/06/23 Range/Units 14:49 16:31 20:06 POC Glucose (mg/dL) 208 H 475 H (70-110) mg/dL Procalcitonin 3.39 H (0.02-0.09) ng/mL Assessment and Plan (1) Liver masses Current Visit: Yes Status: Acute Priority: High Code(s): R16.0 - HEPATOMEGALY, NOT ELSEWHERE CLASSIFIED SNOMED Code(s): 048872916 (2) Anemia Current Visit: Yes Status: Acute Priority: Medium Code(s): D64.9 - ANEMIA, UNSPECIFIED SNOMED Code(s): 257778175 Plan: Liver mass -CT chest abdomen and pelvis reporting liver masses, lymphadenopathy, consolidation in the lungs, T5 compression fracture versus met. T -Interventional radiology has been consulted for liver biopsy. This is on hold until the patient has been assigned a guardian. Normocytic normochromic anemia -Anemia workup sent with anemia of inflammation. -Hemoglobin stable at 10.8 today. No need for transfusion. Pending guardianship before proceeding forward with any additional testing. Medical Oncology will follow-up once there are biopsy results Doctor attests: I performed a history and physical examination of this patient, developed impression and plan of care. Discussed with dictator. I agree with dictators note, documented as a scribe.
[2023-06-08] MEDS: LORazepam 2 MG/ML INJ IV ONE (07:30)
[2023-06-08] MEDS: FUROSEMIDE 20 MG TAB PO SCH (08:13)
--- NOTE | 2023-06-08 12:55 | P.PN ---
Subjective Progress Note Date: 06/08/23 CHIEF COMPLAINT: Weakness and altered mental status HISTORY OF PRESENT ILLNESS: Surgical service following regards to patient's abdominal pain. Liver masslike lesions noted on ultrasound. Still waiting p atient to be assigned a guardian. Patient lying in bed comfortably without complaints. No nausea or vomiting reported. Afebrile. PHYSICAL EXAM: VITAL SIGNS: Reviewed. GENERAL: no acute distress. ABDOMEN: Soft. Nondistended. Hepatomegaly. Firmness noted with palpation right upper quadrant NEUROLOGIC: Confused ASSESSMENT: 1. Abdominal pain 2. Hepatomegaly and liver nodules noted on CT. Concern for metastatic disease. 3. Elevated LFTs 4. Weight loss PLAN: -Awaiting patient to be assigned a guardian. Patient followed by social work -EGD and liver biopsy currently on hold until patient is assigned a guardian -Continue regular diet Physician [employer] Care Worker note has been reviewed by physician. Signing provider agrees with the documented findings, assessment, and plan of care. Objective - Vital Signs Vital signs: Vital Signs Temp 97.2 F L 06/08/23 07:51 Pulse 102 H 06/08/23 07:51 Resp 22 06/08/23 07:51 BP 105/69 06/08/23 07:51 Pulse Ox 94 L 06/08/23 07:51 FiO2 Intake & Output 06/07/23 06/08/23 06/08/23 18:59 06:59 18:59 Intake Total 0 Output Total 240 240 Balance -240 0 -240 Weight 55.5 kg 59 kg Intake: Oral 0 Output: Stool 240 240 Other: Voiding Method Diaper Diaper Diaper # Voids 2 # Bowel Movements 1 - Labs CBC & Chem 7: 06/05/23 08:31 06/06/23 09:43 Labs: Abnormal Lab Results - Last 24 Hours (Table) 06/03/23 06/07/23 Range/Units 10:13 17:11 POC Glucose (mg/dL) 177 H (70-110) mg/dL Iron 54 L (65-175) UG/DL TIBC 186 L (228-460) UG/DL Transferrin 133.0 L (204.0-354.0) mg/dL Ferritin 619.0 H (22.0-322.0) ng/mL
--- NOTE | 2023-06-08 13:37 | P.PN ---
Subjective Progress Note Date: 06/08/23 Patient is a pleasant 62 years old male with no known past medical history, he does not follow-up with PCP and he does not have family/friend support for him. Patient also was homeless and looks like he lives in a motel He was brought via EMS from his hotel. Usually he follow-up with [facility] but he started following for unknown., As per records looks like [facility] team helped with his lodging in the motel. Is not clear reports his main complaint as patient is poor historian. He states he came to the hospital because he is sick without specification. However there was reports of generalized weakness, questionable atrial problem and bilateral leg swelling. Patient lying in bed lethargic but does not look in distress. He is not tachypneic or tachycardic. No abdominal pain for him or vomiting or diarrhea. No other specific complaint However patient has right upper quadrant tenderness and bilateral pitting leg edema For me he denies alcohol or illicit drug. He states he smokes but he could not verify for how long or how much. During the encounter patient was slow to respond and sometimes his answer does not correlate with the questions asked Patient is hemodynamically stable, afebrile, he status post normal saline boluses CBC reviewed showing mild anemia of hemoglobin 11.6 INR 1.1, BMP is unremarkable except for low potassium of 2.6, magnesium 2.1 Troponin is negative, TSH within the reference range 0.8 Urine analysis is suspicious for infection versus dehydrated sample Urine drug screen is negative, alcohol level is negative Gallbladder ultrasound showing gallbladder sludge with no evidence of acute cholecystitis but there is hepatic masses suspicious for metastasis Patient remains confused, he lacked capacity per psychiatrist. poultry process worker on the case to obtain guardianship He was lying in bed calm but easily gets agitated, he also is difficult to follow commands for procedures for example liver biopsy IR team are consulted for biopsy for his liver masses. . Carcinoma is also suspected given his mass and lymphadenopathy He has anasarca and he is on IV Lasix 20 mg twice daily Hematology/oncology team on the case CT of the abdomen chest and pelvis is reviewed by myself showing multiple liver metastasis, lymphadenopathy and basilar pulmonary consolidation with suspicion of infrahilar mass and compression fraction. He remains on Haldol as needed and Zyprexa standing and as needed doses Prognosis guarded 06/04/2023 Patient resting in bed comfortable trying to eat his food Mildly confused, he feels more calm after starting on Zyprexa. No new complaint. No chest pain Oxygen requirement down to 4 He has high procalcitonin. With chest x-ray showing bilateral basal infiltrate I agree with starting the patient on IV Unasyn poultry process worker on the case, since patient has no capacity per psychiatrist and he is in the process of obtaining public guardian Patient will need liver biopsy by IR team for highly suspected malignant liver mass 06/05/2023 Patient getting agitated at times however currently he is calm He was tachycardic and tachypneic today Chest x-ray showing pulmonary edema versus pneumonia He is currently covered with Unasyn and IV Lasix Close tachycardia controlled with metoprolol Will continue monitoring Patient pending obtaining guardianship early next week as he like to make medical decision. Patient will require cardiac to give consent for liver biopsy and procedure/EGD section 06/06/2023 Patient is a still in the process of obtaining guardianship as he will require procedure for example liver biopsy for his multiple liver nodules He is calm lying in bed, confused, he lacks capacity, he gets agitated at times, sitter at bedside. He is on IV Lasix 20 mg twice daily and IV Unasyn for possible pneumonia He was started on metoprolol for sinus tachycardia 06/06. Patient seen and examined. Patient refusing labs. Patient refusing to be questioned or answer any questions 06/07. Patient seen. Once again refused to be examined, was not opening eyes. Patient had a public guardian appointed yesterday. REVIEW OF SYSTEMS: As mentioned above PHYSICAL EXAMINATION: GENERAL: The patient is alert to self, chronically ill looking HEENT: Refused to be examined CARDIOVASCULAR: Refused to be examined PULMONARY: Refused to be examined ABDOMEN: Refused to be examined MUSCULOSKELETAL: No joint swelling or deformity. EXTREMITIES: No cyanosis, clubbing, or pedal edema. NEUROLOGICAL: Refused to be examined SKIN: No rashes. Assessment and plan Acute delirium and schizoaffective disorder Acute hypoxemic respiratory failure, likely multifactorial, the patient has lower lobe consolidation and discontinued sequently for representation of underlying metastatic disease. Multiple echogenic liver masses, identified on abdominal ultrasound, and suspicious for metastatic disease. Transaminitis Bilateral lower extremity edema, generalized anasarca and ascites Hypoalbuminemia T5 compression fracture, rule out pathologic fracture Moderate protein calorie malnutrition Severe hypokalemia Normocytic normochromic anemia Sinus tachycardia, with frequent PACs, improved Suspect underlying chronic obstructive pulmonary disease Chronic ongoing tobacco dependence Homelessness Monitor vital signs Monitor CBC Monitor CMP Continue telemetry monitoring Continue Lopressor Case management on board, legal guardian appointed IR team for liver biopsy Hematology oncology following Pulmonary following, recommend hospice Labs and medication were reviewed.. Continue same treatment. Continue with symptomatic treatment. Resume home medication. Monitor labs and vitals. DVT and GI prophylaxis. Further recommendations as per clinical course of the patient Dictation was produced using [employer] dictation software. please excuse any grammatical, word or spelling errors. Objective - Vital Signs Vital signs: Vital Signs Temp 97.9 F 06/08/23 11:46 Pulse 89 06/08/23 11:46 Resp 20 06/08/23 11:46 BP 123/77 06/08/23 11:46 Pulse Ox 99 06/08/23 11:46 FiO2 Intake & Output 06/07/23 06/08/23 06/08/23 18:59 06:59 18:59 Intake Total 0 658 Output Total 240 240 Balance -240 0 418 Weight 55.5 kg 59 kg Intake: Oral 0 658 Output: Stool 240 240 Other: Voiding Method Diaper Diaper Diaper # Voids 2 # Bowel Movements 1 - Labs CBC & Chem 7: 06/05/23 08:31 06/06/23 09:43 Labs: Abnormal Lab Results - Last 24 Hours (Table) 06/03/23 06/07/23 Range/Units 10:13 17:11 POC Glucose (mg/dL) 177 H (70-110) mg/dL Iron 54 L (65-175) UG/DL TIBC 186 L (228-460) UG/DL Transferrin 133.0 L (204.0-354.0) mg/dL Ferritin 619.0 H (22.0-322.0) ng/mL
--- NOTE | 2023-06-08 14:26 | P.PN ---
Subjective Progress Note Date: 06/08/23 Principal diagnosis: Acute delirium with schizoaffective disorder and acute hypoxic respiratory failure, multifactorial Patient is a 62-year-old white male with little known past medical history. He may have history of schizoaffective disorder and reportedly follows at [facility]. He is currently homeless, living at a motel. Reportedly has a significant smoking history, but will not elaborate on this. After review of the medical record, patient had 2 ER visits on 06/01/2023. [facility]'s wellbeing. Patient was evaluated, and discharged from the emergency room, but he returned later that afternoon because he had trouble returning to the hotel. After further workup, the patient was found to have multiple medical concerns, including some upper abdominal pain and abdominal distention. Abdominal ultrasound identified is severely heterogenous liver with multiple echogenic masslike lesions throughout. Metastatic disease was a primary consideration. There was gallbladder sludge without further evidence suggest acute cholecystitis. There was small to moderate volume ascites. A CT of the chest, abdomen, pelvis was ordered, however, on my evaluation the patient this had not been performed yet. The patient is refusing oral contrast. He also states that the radiation will kill him. The patient appears to be delirious. He is having multiple hallucinations, including auditory and visual hallucinations. He is yelling in the room at something that he calls a ghost. He is fairly agitated, and not receptive to care. He is suspicious of staff, and will not answer my questions. I am concerned about the patient's decision making capacity. He will not keep his supplemental oxygen, and is currently hypoxic. SpO2 is 70%. He is also tachycardic and hypertensive. Patient had received 2 mg of Haldol in the emergency room earlier. I did repeat with another additional dose of Haldol 5 mg IM once. I also started the patient on as needed Ativan for anxiety/agitation. This appears to calm the patient, he is more receptive to care. We were able to put his oxygen back on, and is currently requiring 6 L/min nasal cannula. He is dyspneic. He has audible wheezing. Chest x-ray was completed which showed a right-sided effusion and moderate pulmonary edema. There is a questionable right hilar density. CBC on arrival: WBC count 10.3, hemoglobin 10.7, hematocrit 34, platelets 155. BMP on arrival: Sodium 139, potassium 3.6, chloride 102, serum bicarb 34, BUN 33, creatinine 0.75, glucose 162. LFTs were elevated with an AST of 193, ALT of 129, ALP of 833. Total bilirubin 1.2. Albumin 2.1. Original urinalysis had moderate leukocytes and many bacteria, repeat sample looks fairly unremarkable. Patient is afebrile. Urine drug screen was all negative. I saw this patient on the medical floor and the patient was confused and he did not have any good insight on his condition. He is on 4 L of oxygen by nasal cannula with a pulse ox of 98%. Did not show any signs of any significant respiratory distress. However, his quite emaciated and cachectic. He was also seen by psychiatry and he was thought to have a component of delirium along with history of schizophrenia. The patient was asked to receive Zyprexa 2.5 mg at bedtime for psychosis and agitation and 2.5 mg 3 times daily on a as needed basis as needed. Meanwhile, the patient was seen by various other specialists including medical oncology and general surgery. Previously was canceled. The patient is going to undergo a liver biopsy by interventional radiology. Patient cannot sign consent and this needs to be worked on by social sciences department chair/case management. He may need a public guardian. BUN is 29 with a creatinine of 0.7. LFTs are still abnormal and elevated on today's evaluation. UA is negative. The white cell count at 9.5 with a hemoglobin 11.6. I also reviewed the CAT scan of the chest. The patient does have airspace disease in the lung base bilaterally along with areas of consolidation. This could be potentially a malignant process. The right lower lobe bronchus and the bronchus intermedius has been quite narrowed and the patient also has prominent mediastinal lymph nodes. Possibility of underlying primary bronchogenic carcinoma cannot be completely excluded. He is currently on Lasix 20 mg IV every 12 hours. His proBNP level was 1180. Procalcitonin level needs to be checked. I was able to review the CAT scan of the chest abdomen and [facility] The patient has dependent consolidation of the lung base bilaterally, possible reactive hilar mass, narrowing of the right lower lobe bronchus/bronchus intermedius, mediastinal lymphadenopathy, hepatomegaly and innumerable enhancing nodules in the liver consistent with metastatic disease a nd evidence of generalized volume overload to bilateral pleural effusion/mesenteric ascites and anasarca. Malignant ascitic fluid cannot be completely excluded. The patient also has a fracture of the T5 spine, pathology compression fracture cannot be completely excluded. On 06/04/2023, the patient is resting comfortably in a chair. No specific complaints. He is quite debilitated and weak and mentation is altered. Legal guardianship has been safe at this point in time. EGD has been canceled. Unable to complete the biopsy of the liver as the patient cannot sign his own consent. Respiratory status is stable. The patient remains on oxygen 4 L/min nasal cannula. His procalcitonin level was elevated. IV Unasyn was added. His potassium level is at 3.6. No agitation at this point in time. He has a sitter at the bedside. On 06/05/2023, no change in patient's condition. Awaiting public guardianship. The patient is currently on room air oxygen with a pulse ox of 93%. Remains on IV Unasyn. Labs from today show a WBC count 9.4, hemoglobin 10.8 and a platelet count of 144. BUN 32 with a creatinine of 0.6 and a sodium levels at 134 and a potassium level of 3.3. As mentioned, the procalcitonin level was elevated at 3.41. On 06/06/2023, the patient is calm and comfortable. Overnight, the patient was becoming agitated, confused, having episodes of hallucination and restlessness and trying to come out of bed. He was also reporting some increased shortness of breath. He was given Zyprexa 5 mg IV push and following that the patient is receiving Zyprexa 2.5 mg p.o. 3 times daily as needed and he also has some Zofran for increased nausea. He remains on IV Unasyn. Blood gas that was done yesterday showed a pH of 7.46 with a pCO2 of 47 and pO2 of 71 and the patient is currently on 3 L of oxygen by nasal cannula with a pulse ox of 96%. Repeat chest x-ray from yesterday shows worsening minimal volume loss and consolidation of the right lung base. There is some airspace disease along with some atelectasis and possibly a small right-sided pleural effusion. The patient is currently calm and comfortable resting in bed and he is currently on Lasix 20 mg IV every 12 hours. Patient was reevaluated today on 06/07/2023, patient is basically about the same, remains confused and agitated easily, and there seems to be a picture of bronchogenic carcinoma with metastasis, involving the liver. This point in time the patient is not a candidate for any intervention, not to mention the patient is in the process of getting a legal guardian, and after reviewing the whole chart, I believe the patient is not a candidate even for biopsy, I for 1 would recommend basically comfort care measures and hospice. Patient is a failure to thrive, and he does have significant findings suggestive of metastatic disease on the CT of the chest, there is evidence of multiple nodules in the liver, there is also evidence of prominent enlarged mediastinal lymph nodes largest in the pretracheal area. There is also evidence of pleural effusions and mesenteric ascites and anasarca. In addition there is a T5 compression fracture. Patient was reevaluated today on 06/08/2023, remains basically the same, remains confused, gets agitated easily, could not get any information out of the patient himself. Patient looks frail, cachectic, and chronically ill. Apparently court appointed a public guardian for this patient yesterday, and I believe at this point discussion has to be done with the newly appointed public guardian, and decide whether to proceed with diagnostic studies or proceed with comfort care measures. From the overall picture clinical picture I am recommending mostly hospice care and comfort care measures. Patient is not a candidate for any intervention even if the diagnosis is made Objective - Vital Signs Vital signs: Vital Signs Temp 97.9 F 06/08/23 11:46 Pulse 89 06/08/23 11:46 Resp 20 06/08/23 11:46 BP 123/77 06/08/23 11:46 Pulse Ox 99 06/08/23 11:46 FiO2 Intake & Output 06/07/23 06/08/23 06/08/23 18:59 06:59 18:59 Intake Total 0 658 Output Total 240 480 Balance -240 0 178 Weight 55.5 kg 59 kg Intake: Oral 0 658 Output: Stool 240 480 Other: Voiding Method Diaper Diaper Diaper # Voids 2 # Bowel Movements 1 - Exam Physical exam is limited patient is quite agitated and gets physically abusive patient looks extremely cachectic. And chronically ill. GENERAL EXAM: Anxious and agitated, HEAD: Normocephalic and atraumatic EYES: Normal reaction of pupils, equal size.. CHEST: No chest wall deformity. LUNGS: Equal air entry, with diminished basilar lung sounds and inspiratory crackles CVS: S1 and S2 normal with no audible murmur, regular rhythm. No extra heart sounds. ABDOMEN: Marked abdominal distention, hepatomegaly. SPINE: No scoliosis or deformity SKIN: No rashes CENTRAL NERVOUS SYSTEM: Cannot fully assess. EXTREMITIES: There is 2-3+ bilateral lower extremity pitting edema. Positive clubbing - Labs CBC & Chem 7: 06/05/23 08:31 06/06/23 09:43 Labs: Abnormal Lab Results - Last 24 Hours (Table) 06/03/23 06/07/23 Range/Units 10:13 17:11 POC Glucose (mg/dL) 177 H (70-110) mg/dL Iron 54 L (65-175) UG/DL TIBC 186 L (228-460) UG/DL Transferrin 133.0 L (204.0-354.0) mg/dL Ferritin 619.0 H (22.0-322.0) ng/mL Assessment and Plan Assessment: Impression: Strongly suspect metastatic disease most likely primary is bronchogenic carcinoma with multiple distant areas of metastasis including liver Acute delirium and schizoaffective disorder Bilateral pleural effusions and ascites most likely malignant in nature. T5 compression fracture Anasarca and ascites Moderate protein calorie malnutrition Suspect underlying COPD Chronic ongoing tobacco dependence Recommendations: continue present supportive care measures Changed to oral antibiotics, patient is refusing IV fluids [facility] Still recommend comfort care measures and hospice consultation. Patient is not even a good candidate for any biopsy however If the biopsy is to be considered, I would recommend liver biopsy to establish and confirm diagnosis of malignancy. Will continue to follow Time with Patient: Less than 30
[2023-06-08 18:32] LABS: Glucose,Whole Blood 204 mg/dL (70-110)
[2023-06-08] MEDS: FUROSEMIDE 10 MG/ML 4 ML VIAL IV STA (19:57)
--- NOTE | 2023-06-08 20:26 | XR ---
EXAMINATION TYPE: XR chest 1V portable DATE OF EXAM: 06/08/2023 8:18 PM CLINICAL INDICATION:Male, 62 years old with history of shortness of breath; H COMPARISON: Chest radiographs from 06/05/2023. CT chest 06/03/2023 TECHNIQUE: XR chest 1V portable Frontal view of the chest. FINDINGS: Lungs/Pleura: Mild interval progression of right lung airspace disease. Moderate size right pleural e ffusion, overall stable interval. Hazy left lung airspace opacities, grossly stable. Pulmonary vascularity: Mild pulmonary vascular congestion. Heart/mediastinum: Cardiomediastinal silhouette is unremarkable. Musculoskeletal: No acute osseous pathology. IMPRESSION: 1. Mild interval progression of right lung airspace disease, with stable moderate sized pleural effus ion. 2. Stable scattered left lung airspace disease.
[2023-06-08] MEDS: AMOXIC-POT CLAV 875-125MG 1 EACH TAB PO SCH (20:53)
[2023-06-09 09:06] VITALS: TEMP 97.6
[2023-06-09] MEDS: FUROSEMIDE 10 MG/ML 4 ML VIAL IV STA (11:39)
--- NOTE | 2023-06-09 13:05 | P.PN ---
Subjective Progress Note Date: 06/09/23 Patient is a pleasant 62 years old male with no known past medical history, he does not follow-up with PCP and he does not have family/friend support for him. Patient also was homeless and looks like he lives in a motel He was brought via EMS from his hotel. Usually he follow-up with [facility] but he started following for unknown., As per records looks like [facility] team helped with his lodging in the motel. Is not clear reports his main complaint as patient is poor historian. He states he came to the hospital because he is sick without specification. However there was reports of generalized weakness, questionable atrial problem and bilateral leg swelling. Patient lying in bed lethargic but does not look in distress. He is not tachypneic or tachycardic. No abdominal pain for him or vomiting or diarrhea. No other specific complaint However patient has right upper quadrant tenderness and bilateral pitting leg edema For me he denies alcohol or illicit drug. He states he smokes but he could not verify for how long or how much. During the encounter patient was slow to respond and sometimes his answer does not correlate with the questions asked Patient is hemodynamically stable, afebrile, he status post normal saline boluses CBC reviewed showing mild anemia of hemoglobin 11.6 INR 1.1, BMP is unremarkable except for low potassium of 2.6, magnesium 2.1 Troponin is negative, TSH within the reference range 0.8 Urine analysis is suspicious for infection versus dehydrated sample Urine drug screen is negative, alcohol level is negative Gallbladder ultrasound showing gallbladder sludge with no evidence of acute cholecystitis but there is hepatic masses suspicious for metastasis Patient remains confused, he lacked capacity per psychiatrist. music worker on the case to obtain guardianship He was lying in bed calm but easily gets agitated, he also is difficult to follow commands for procedures for example liver biopsy IR team are consulted for biopsy for his liver masses. . Carcinoma is also suspected given his mass and lymphadenopathy He has anasarca and he is on IV Lasix 20 mg twice daily Hematology/oncology team on the case CT of the abdomen chest and pelvis is reviewed by myself showing multiple liver metastasis, lymphadenopathy and basilar pulmonary consolidation with suspicion of infrahilar mass and compression fraction. He remains on Haldol as needed and Zyprexa standing and as needed doses Prognosis guarded 06/04/2023 Patient resting in bed comfortable trying to eat his food Mildly confused, he feels more calm after starting on Zyprexa. No new complaint. No chest pain Oxygen requirement down to 4 He has high procalcitonin. With chest x-ray showing bilateral basal infiltrate I agree with starting the patient on IV Unasyn music worker on the case, since patient has no capacity per psychiatrist and he is in the process of obtaining public guardian Patient will need liver biopsy by IR team for highly suspected malignant liver mass 06/05/2023 Patient getting agitated at times however currently he is calm He was tachycardic and tachypneic today Chest x-ray showing pulmonary edema versus pneumonia He is currently covered with Unasyn and IV Lasix Close tachycardia controlled with metoprolol Will continue monitoring Patient pending obtaining guardianship early next week as he like to make medical decision. Patient will require cardiac to give consent for liver biopsy and procedure/EGD section 06/06/2023 Patient is a still in the process of obtaining guardianship as he will require procedure for example liver biopsy for his multiple liver nodules He is calm lying in bed, confused, he lacks capacity, he gets agitated at times, sitter at bedside. He is on IV Lasix 20 mg twice daily and IV Unasyn for possible pneumonia He was started on metoprolol for sinus tachycardia 06/06. Patient seen and examined. Patient refusing labs. Patient refusing to be questioned or answer any questions 06/07. Patient seen. Once again refused to be examined, was not opening eyes. Patient had a public guardian appointed yesterday. 06/08. Patient seen. Is not participating in physical exam. Discussed with other specialties, patient is hospice appropriate. REVIEW OF SYSTEMS: As mentioned above PHYSICAL EXAMINATION: GENERAL: The patient is alert to self, chronically ill looking HEENT: Refused to be examined CARDIOVASCULAR: Refused to be examined PULMONARY: Refused to be examined ABDOMEN: Refused to be examined MUSCULOSKELETAL: No joint swelling or deformity. EXTREMITIES: No cyanosis, clubbing, or pedal edema. NEUROLOGICAL: Refused to be examined SKIN: No rashes. Assessment and plan Acute delirium and schizoaffective disorder Acute hypoxemic respiratory failure, likely multifactorial, the patient has lower lobe consolidation and discontinued sequently for representation of underlying metastatic disease. Multiple echogenic liver masses, identified on abdominal ultrasound, and suspicious for metastatic disease. Transaminitis Bilateral lower extremity edema, generalized anasarca and ascites Hypoalbuminemia T5 compression fracture, rule out pathologic fracture Moderate protein calorie malnutrition Severe hypokalemia Normocytic normochromic anemia Sinus tachycardia, with frequent PACs, improved Suspect underlying chronic obstructive pulmonary disease Chronic ongoing tobacco dependence Homelessness Monitor vital signs Continue Lopressor Case management on board, legal guardian appointed IR team for liver biopsy Hematology oncology following Pulmonary following, recommend hospice Keeping in mind patient's poor prognosis, patient is hospice appropriate, case management trying to coordinate with legal guardian regarding hospice Labs and medication were reviewed.. Continue same treatment. Continue with symptomatic treatment. Resume home medication. Monitor labs and vitals. DVT and GI prophylaxis. Further recommendations as per clinical course of the patient Dictation was produced using [employer] dictation software. please excuse any grammatical, word or spelling errors. Objective - Vital Signs Vital signs: Vital Signs Temp 97.6 F 06/09/23 08:30 Pulse 74 06/09/23 11:37 Resp 22 06/09/23 11:37 BP 117/72 06/09/23 11:37 Pulse Ox 90 L 06/09/23 11:37 FiO2 Intake & Output 06/08/23 06/09/23 06/09/23 18:59 06:59 18:59 Intake Total 1498 30 250 Output Total 480 400 Balance 1018 -370 250 Weight 56 kg Intake: IV 30 10 Invasive Line 3 30 10 Oral 1498 240 Output: Urine 400 Stool 480 Other: Voiding Method Diaper Diaper Diaper # Voids 4 1 - Labs CBC & Chem 7: 06/05/23 08:31 06/06/23 09:43 Labs: Abnormal Lab Results - Last 24 Hours (Table) 06/08/23 Range/Units 18:28 POC Glucose (mg/dL) 204 H (70-110) mg/dL
--- NOTE | 2023-06-09 13:59 | P.PN ---
Subjective Progress Note Date: 06/09/23 CHIEF COMPLAINT: Weakness and altered mental status HISTORY OF PRESENT ILLNESS: Surgical service following regards to patient's abdominal pain. Liver masslike lesions noted on ultrasound. There are concerns for metastatic disease with malignancy involving the lung, liver and spine. Patient was assigned a public guardian yesterday. Patient still refusing any procedure. Overall prognosis is poor. Agree with hospice consult. PHYSICAL EXAM: VITAL SIGNS: Reviewed. GENERAL: no acute distress. ABDOMEN: Soft. Nondistended. Hepatomegaly. Firmness noted with palpation right upper quadrant NEUROLOGIC: Confused ASSESSMENT: 1. Abdominal pain 2. Hepatomegaly and liver nodules noted on CT. Concern for metastatic disease. 3. Elevated LFTs 4. Weight loss PLAN: -Patient's overall prognosis is poor. Agree with hospice consult and comfort care. Physician Dry Ice Maker note has been reviewed by physician. Signing provider agrees with the documented findings, assessment, and plan of care. Objective - Vital Signs Vital signs: Vital Signs Temp 97.6 F 06/09/23 08:30 Pulse 74 06/09/23 11:37 Resp 22 06/09/23 11:37 BP 117/72 06/09/23 11:37 Pulse Ox 90 L 06/09/23 11:37 FiO2 Intake & Output 06/08/23 06/09/23 06/09/23 18:59 06:59 18:59 Intake Total 1498 30 250 Output Total 480 400 Balance 1018 -370 250 Weight 56 kg Intake: IV 30 10 Invasive Line 3 30 10 Oral 1498 240 Output: Urine 400 Stool 480 Other: Voiding Method Diaper Diaper Diaper # Voids 4 1 - Labs CBC & Chem 7: 06/05/23 08:31 06/06/23 09:43 Labs: Abnormal Lab Results - Last 24 Hours (Table) 06/08/23 Range/Units 18:28 POC Glucose (mg/dL) 204 H (70-110) mg/dL
--- NOTE | 2023-06-09 14:21 | P.PN ---
Subjective Progress Note Date: 06/09/23 Principal diagnosis: Acute delirium with schizoaffective disorder and acute hypoxic respiratory failure, multifactorial Patient is a 62-year-old white male with little known past medical history. He may have history of schizoaffective disorder and reportedly follows at [facility]. He is currently homeless, living at a motel. Reportedly has a significant smoking history, but will not elaborate on this. After review of the medical record, patient had 2 ER visits on 06/01/2023. ER reports state that originally [facility] staff were concerned about the patient's wellbeing. Patient was evaluated, and discharged from the emergency room, but he returned later that afternoon because he had trouble returning to the hotel. After further workup, the patient was found to have multiple medical concerns, including some upper abdominal pain and abdominal distention. Abdominal ultrasound identified is severely heterogenous liver with multiple echogenic masslike lesions throughout. Metastatic disease was a primary consideration. There was gallbladder sludge without further evidence suggest acute cholecystitis. There was small to moderate volume ascites. A CT of the chest, abdomen, pelvis was ordered, however, on my evaluation the patient this had not been performed yet. The patient is refusing oral contrast. He also states that the radiation will kill him. The patient appears to be delirious. He is having multiple hallucinations, including auditory and visual hallucinations. He is yelling in the room at something that he calls a ghost. He is fairly agitated, and not receptive to care. He is suspicious of staff, and will not answer my questions. I am concerned about the patient's decision making capacity. He will not keep his supplemental oxygen, and is currently hypoxic. SpO2 is 70%. He is also tachycardic and hypertensive. Patient had received 2 mg of Haldol in the emergency room earlier. I did repeat with another additional dose of Haldol 5 mg IM once. I also started the patient on as needed Ativan for anxiety/agitation. This appears to calm the patient, he is more receptive to care. We were able to put his oxygen back on, and is currently requiring 6 L/min nasal cannula. He is dyspneic. He has audible wheezing. Chest x-ray was completed which showed a right-sided effusion and moderate pulmonary edema. There is a questionable right hilar density. CBC on arrival: WBC count 10.3, hemoglobin 10.7, hematocrit 34, platelets 155. BMP on arrival: Sodium 139, potassium 3.6, chloride 102, serum bicarb 34, BUN 33, creatinine 0.75, glucose 162. LFTs were elevated with an AST of 193, ALT of 129, ALP of 833. Total bilirubin 1.2. Albumin 2.1. Original urinalysis had moderate leukocytes and many bacteria, repeat sample looks fairly unremarkable. Patient is afebrile. Urine drug screen was all negative. I saw this patient on the medical floor and the patient was confused and he did not have any good insight on his condition. He is on 4 L of oxygen by nasal cannula with a pulse ox of 98%. Did not show any signs of any significant respiratory distress. However, his quite emaciated and cachectic. He was also seen by psychiatry and he was thought to have a component of delirium along with history of schizophrenia. The patient was asked to receive Zyprexa 2.5 mg at bedtime for psychosis and agitation and 2.5 mg 3 times daily on a as needed basis as needed. Meanwhile, the patient was seen by various other specialists including medical oncology and general surgery. Previously was canceled. The patient is going to undergo a liver biopsy by interventional radiology. Patient cannot sign consent and this needs to be worked on by social insurance adviser/case management. He may need a public guardian. BUN is 29 with a creatinine of 0.7. LFTs are still abnormal and elevated on today's evaluation. UA is negative. The white cell count at 9.5 with a hemoglobin 11.6. I also reviewed the CAT scan of the chest. The patient does have airspace disease in the lung base bilaterally along with areas of consolidation. This could be potentially a malignant process. The right lower lobe bronchus and the bronchus intermedius has been quite narrowed and the patient also has prominent mediastinal lymph nodes. Possibility of underlying primary bronchogenic carcinoma cannot be completely excluded. He is currently on Lasix 20 mg IV every 12 hours. His proBNP level was 1180. Procalcitonin level needs to be checked. I was able to review the CAT scan of the chest abdomen and pelvis that [facility]. The patient has dependent consolidation of the lung base bilaterally, possible reactive hilar mass, narrowing of the right lower lobe bronchus/bronchus intermedius, mediastinal lymphadenopathy, hepatomegaly and innumerable enhancing nodules in the liver consistent with metastatic disease a nd evidence of generalized volume overload to bilateral pleural effusion/mesenteric ascites and anasarca. Malignant ascitic fluid cannot be completely excluded. The patient also has a fracture of the T5 spine, pathology compression fracture cannot be completely excluded. On 06/04/2023, the patient is resting comfortably in a chair. No specific complaints. He is quite debilitated and weak and mentation is altered. Legal guardianship has been safe at this point in time. EGD has been canceled. Unable to complete the biopsy of the liver as the patient cannot sign his own consent. Respiratory status is stable. The patient remains on oxygen 4 L/min nasal cannula. His procalcitonin level was elevated. IV Unasyn was added. His potassium level is at 3.6. No agitation at this point in time. He has a sitter at the bedside. On 06/05/2023, no change in patient's condition. Awaiting public guardianship. The patient is currently on room air oxygen with a pulse ox of 93%. Remains on IV Unasyn. Labs from today show a WBC count 9.4, hemoglobin 10.8 and a platelet count of 144. BUN 32 with a creatinine of 0.6 and a sodium levels at 134 and a potassium level of 3.3. As mentioned, the procalcitonin level was elevated at 3.41. On 06/06/2023, the patient is calm and comfortable. Overnight, the patient was becoming agitated, confused, having episodes of hallucination and restlessness and trying to come out of bed. He was also reporting some increased shortness of breath. He was given Zyprexa 5 mg IV push and following that the patient is receiving Zyprexa 2.5 mg p.o. 3 times daily as needed and he also has some Zofran for increased nausea. He remains on IV Unasyn. Blood gas that was done yesterday showed a pH of 7.46 with a pCO2 of 47 and pO2 of 71 and the patient is currently on 3 L of oxygen by nasal cannula with a pulse ox of 96%. Repeat chest x-ray from yesterday shows worsening minimal volume loss and consolidation of the right lung base. There is some airspace disease along with some atelectasis and possibly a small right-sided pleural effusion. The patient is currently calm and comfortable resting in bed and he is currently on Lasix 20 mg IV every 12 hours. Patient was reevaluated today on 06/07/2023, patient is basically about the same, remains confused and agitated easily, and there seems to be a picture of bronchogenic carcinoma with metastasis, involving the liver. This point in time the patient is not a candidate for any intervention, not to mention the patient is in the process of getting a legal guardian, and after reviewing the whole chart, I believe the patient is not a candidate even for biopsy, I for 1 would recommend basically comfort care measures and hospice. Patient is a failure to thrive, and he does have significant findings suggestive of metastatic disease on the CT of the chest, there is evidence of multiple nodules in the liver, there is also evidence of prominent enlarged mediastinal lymph nodes largest in the pretracheal area. There is also evidence of pleural effusions and mesenteric ascites and anasarca. In addition there is a T5 compression fracture. Patient was reevaluated today on 06/08/2023, remains basically the same, remains confused, gets agitated easily, could not get any information out of the patient himself. Patient looks frail, cachectic, and chronically ill. Apparently court appointed a public guardian for this patient yesterday, and I believe at this point discussion has to be done with the newly appointed public guardian, and decide whether to proceed with diagnostic studies or proceed with comfort care measures. From the overall picture clinical picture I am recommending mostly hospice care and comfort care measures. Patient is not a candidate for any intervention even if the diagnosis is made Patient was reevaluated today on 06/09/2023, patient continues to refuse taking medications, patient even refuses to be examined at times, does not participate in physical examination, although on listening to his lungs, patient has diffuse rhonchi and crackles bilaterally. I did recommend a dose of Lasix, chest x-ray showed a good sized right-sided pleural effusion, patient will be unwilling to have thoracentesis and is almost impossible to do it without the patient coop erating with the procedure. Again reviewing the overall picture, I believe the patient should be evaluated by hospice. And this should be discussed with his legal public guardian Objective - Vital Signs Vital signs: Vital Signs Temp 97.6 F 06/09/23 08:30 Pulse 74 06/09/23 11:37 Resp 22 06/09/23 11:37 BP 117/72 06/09/23 11:37 Pulse Ox 90 L 06/09/23 11:37 FiO2 Intake & Output 06/08/23 06/09/23 06/09/23 18:59 06:59 18:59 Intake Total 1498 30 500 Output Total 480 400 Balance 1018 -370 500 Weight 56 kg Intake: IV 30 20 Invasive Line 3 30 20 Oral 1498 480 Output: Urine 400 Stool 480 Other: Voiding Method Diaper Diaper Diaper # Voids 4 1 - Exam Physical exam is limited patient is quite agitated and gets physically abusive patient looks extremely cachectic. And chronically ill. GENERAL EXAM: Anxious and agitated, HEAD: Normocephalic and atraumatic EYES: Normal reaction of pupils, equal size.. CHEST: No chest wall deformity. LUNGS: Diffuse rhonchi and wheezing bilaterally. CVS: S1 and S2 normal with no audible murmur, regular rhythm. No extra heart sounds. ABDOMEN: Marked abdominal distention, hepatomegaly. SPINE: No scoliosis or deformity SKIN: No rashes CENTRAL NERVOUS SYSTEM: Cannot fully assess. Patient is uncooperative EXTREMITIES: There is 2-3+ bilateral lower extremity pitting edema. Positive clubbing - Labs CBC & Chem 7: 06/05/23 08:31 06/06/23 09:43 Labs: Abnormal Lab Results - Last 24 Hours (Table) 06/08/23 Range/Units 18:28 POC Glucose (mg/dL) 204 H (70-110) mg/dL Assessment and Plan Assessment: Impression: Strongly suspect metastatic disease most likely primary is bronchogenic carcinoma with multiple distant areas of metastasis including liver Acute delirium and schizoaffective disorder Bilateral pleural effusions and ascites most likely malignant in nature. T5 compression fracture Anasarca and ascites Moderate protein calorie malnutrition Suspect underlying COPD Chronic ongoing tobacco dependence Recommendations: Lasix 40 mg IV push was ordered after reviewing chest x-ray today. continue present supportive care measures Changed to oral antibiotics Continue updrafts Still recommend comfort care measures and hospice consultation. Patient is not even a good candidate for liver biopsy or bronchoscopy and biopsy, doubt if I could even do thoracentesis on this patient with outpatient cooperating with the procedure Time with Patient: Less than 30
[2023-06-09] MEDS: MORPHINE SULFATE 2 MG/ML SYRINGE IVP PRN (16:10)
[2023-06-09 16:51] VITALS: RESP 24
[2023-06-09 20:37] VITALS: BP 106/68; PULSE 99
--- NOTE | 2023-06-10 13:12 | P.DS ---
Providers Date of admission: 06/01/23 21:36 Expected date of discharge: 06/10/23 Attending physician: Nicole Hu Consults: 06/01/23 21:36 Consult Physician Routine Consulting Provider: Peter Earl Consult Reason/Comments: abdPain Do you want consulting provider notified?: Yes 06/02/23 11:15 Consult Physician Routine Consulting Provider: Vilma Lui Consult Reason/Comments: liver masses Do you want consulting provider notified?: Yes 06/02/23 17:26 Consult Physician Urgent Consulting Provider: Tabatha Braden Consult Reason/Comments: hypoxia Do you want consulting provider notified?: Yes 06/02/23 23:36 Consult Physician Routine Consulting Provider: Hadley Kang Consult Reason/Comments: concerns of about decision making capacity; history of schizoaffective diso Do you want consulting provider notified?: Yes, Notify in am Primary care physician: Stated None Hospital Course: Discharge diagnoses; Acute delirium and schizoaffective disorder Acute hypoxemic respiratory failure, likely multifactorial, the patient has lower lobe consolidation and discontinued sequently for representation of underlying metastatic disease. Multiple echogenic liver masses, identified on abdominal ultrasound, and suspicious for metastatic disease. Transaminitis Bilateral lower extremity edema, generalized anasarca and ascites Hypoalbuminemia T5 compression fracture, rule out pathologic fracture Moderate protein calorie malnutrition Severe hypokalemia Normocytic normochromic anemia Sinus tachycardia, with frequent PACs, improved Suspect underlying chronic obstructive pulmonary disease Chronic ongoing tobacco dependence Homelessness Hospital course; Patient is a pleasant 62 years old male with no known past medical history, he does not follow-up with PCP and he does not have family/friend support for him. Patient also was homeless and looks like he lives in a motel He was brought via EMS from his hotel. Usually he follow-up with [facility] but he started following for unknown., As per records looks like [facility] team helped with his lodging in the motel. Is not clear reports his main complaint as patient is poor historian. He states he came to the hospital because he is sick without specification. However there was reports of generalized weakness, questionable atrial problem and bilateral leg swelling. Patient lying in bed lethargic but does not look in distress. He is not tachypneic or tachycardic. No abdominal pain for him or vomiting or diarrhea. No other specific complaint However patient has right upper quadrant tenderness and bilateral pitting leg edema For me he denies alcohol or illicit drug. He states he smokes but he could not verify for how long or how much. During the encounter patient was slow to respond and sometimes his answer does not correlate with the questions asked Patient is hemodynamically stable, afebrile, he status post normal saline boluses CBC reviewed showing mild anemia of hemoglobin 11.6 INR 1.1, BMP is unremarkable except for low potassium of 2.6, magnesium 2.1 Troponin is negative, TSH within the reference range 0.8 Urine analysis is suspicious for infection versus dehydrated sample Urine drug screen is negative, alcohol level is negative Gallbladder ultrasound showing gallbladder sludge with no evidence of acute cholecystitis but there is hepatic masses suspicious for metastasis Patient remains confused, he lacked capacity per psychiatrist. wall worker on the case to obtain guardianship He was lying in bed calm but easily gets agitated, he also is difficult to follow commands for procedures for example liver biopsy IR team are consulted for biopsy for his liver masses. . Carcinoma is also suspected given his mass and lymphadenopathy He has anasarca and he is on IV Lasix 20 mg twice daily Hematology/oncology team on the case CT of the abdomen chest and pelvis is reviewed by myself showing multiple liver metastasis, lymphadenopathy and basilar pulmonary consolidation with suspicion of infrahilar mass and compression fraction. He remains on Haldol as needed and Zyprexa standing and as needed doses Prognosis guarded 06/04/2023 Patient resting in bed comfortable trying to eat his food Mildly confused, he feels more calm after starting on Zyprexa. No new complaint. No chest pain Oxygen requirement down to 4 He has high procalcitonin. With chest x-ray showing bilateral basal infiltrate I agree with starting the patient on IV Unasyn wall worker on the case, since patient has no capacity per psychiatrist and he is in the process of obtaining public guardian Patient will need liver biopsy by IR team for highly suspected malignant liver mass 06/05/2023 Patient getting agitated at times however currently he is calm He was tachycardic and tachypneic today Chest x-ray showing pulmonary edema versus pneumonia He is currently covered with Unasyn and IV Lasix Close tachycardia controlled with metoprolol Will continue monitoring Patient pending obtaining guardianship early next week as he like to make medical decision. Patient will require cardiac to give consent for liver biopsy and procedure/EGD section 06/06/2023 Patient is a still in the process of obtaining guardianship as he will require procedure for example liver biopsy for his multiple liver nodules He is calm lying in bed, confused, he lacks capacity, he gets agitated at times, sitter at bedside. He is on IV Lasix 20 mg twice daily and IV Unasyn for possible pneumonia He was started on metoprolol for sinus tachycardia 06/06. Patient seen and examined. Patient refusing labs. Patient refusing to be questioned or answer any questions 06/07. Patient seen. Once again refused to be examined, was not opening eyes. Patient had a public guardian appointed yesterday. 06/08. Patient seen. Is not participating in physical exam. Discussed with other specialties, patient is hospice appropriate. Patient was discharged to inpatient hospice PHYSICAL EXAMINATION: GENERAL: The patient is alert to self, chronically ill looking HEENT: Refused to be examined CARDIOVASCULAR: Refused to be examined PULMONARY: Refused to be examined ABDOMEN: Refused to be examined MUSCULOSKELETAL: No joint swelling or deformity. EXTREMITIES: No cyanosis, clubbing, or pedal edema. NEUROLOGICAL: Refused to be examined SKIN: No rashes. Dictation was produced using [employer] dictation software. please excuse any grammatical, word or spelling errors. Patient Condition at Discharge: Poor Plan - Discharge Summary Discharge Rx Participant: No New Discharge Prescriptions: No Action No Known Home Medications Discharge Medication List No Known Home Medications 06/01/23 [History] Follow up Appointment(s)/Referral(s): None,Stated [Primary Care Provider] - 1-2 days Discharge Disposition: DC/TRNS IP HOSP W/PLND IP READ
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
== END 2023-06-09 20:58 | disposition hospice, inpatient (51) | DRG 281 ==
LOC: EC 16:00 → EEVIPCON 21:36 → 4SSUR 21:36 → 3SCARD 06-02 20:14
PROVIDERS: ADMIT Hospitalist; ATTEND Hospitalist
DX: C78.7 Secondary malignant neoplasm of liver and intrahepatic bile duct (principal); J96.01 Acute respiratory failure with hypoxia; R18.0 Malignant ascites; G92.8 Other toxic encephalopathy; E44.0 Moderate protein-calorie malnutrition; I27.20 Pulmonary hypertension, unspecified; F25.8 Other schizoaffective disorders; M48.54XA Collapsed vertebra, not elsewhere classified, thoracic region, initial encounter for fracture; C34.31 Malignant neoplasm of lower lobe, right bronchus or lung; J43.9 Emphysema, unspecified; J91.8 Pleural effusion in other conditions classified elsewhere; F05 Delirium due to known physiological condition; E88.A Wasting disease (syndrome) due to underlying condition; R62.7 Adult failure to thrive; R16.0 Hepatomegaly, not elsewhere classified; E88.09 Other disorders of plasma-protein metabolism, not elsewhere classified; E86.0 Dehydration; I07.1 Rheumatic tricuspid insufficiency; D63.0 Anemia in neoplastic disease; Z66 Do not resuscitate; Z51.5 Encounter for palliative care; I49.1 Atrial premature depolarization; R82.71 Bacteriuria; F17.210 Nicotine dependence, cigarettes, uncomplicated; E87.6 Hypokalemia; E87.70 Fluid overload, unspecified; J98.11 Atelectasis; K59.00 Constipation, unspecified; Z68.1 Body mass index [BMI] 19.9 or less, adult; K82.8 Other specified diseases of gallbladder; R26.2 Difficulty in walking, not elsewhere classified; R59.0 Localized enlarged lymph nodes; R82.90 Unspecified abnormal findings in urine; Z59.01 Sheltered homelessness
CPT/HCPCS: 36415; 36600; 70450; 71045; 71260; 74177; 76705; 80048; 80053; 80076; 80306; 80320; 81001; 81003; 82140; 82607; 82728; 82747; 82805; 83540; 83550; 83605; 83735; 83880; 83921; 84100; 84132; 84145; 84443; 84484; 85025; 85045; 85610; 85730; 93005; 93306; 94640; 94760; 96361; 96365; 96366; 96372; 96375; 99285

== ENCOUNTER 2023-06-09 20:14 | Inpatient (IN) | payer MEDICAID, OTHER ==
[2023-06-09] MEDS ORDERED: ARTIFICIAL TEARS-HYPROMELLOSE DROPS 15 ML BTL BOTH EYES PRN (20:25)
[2023-06-09] MEDS ORDERED: ONDANSETRON 4 MG/2 ML VIAL IVP PRN (20:25)
[2023-06-09] MEDS ORDERED: ACETAMINOPHEN SUPPOSITORY 650 MG SUPP RECTAL PRN (20:25)
[2023-06-09] MEDS ORDERED: ACETAMINOPHEN TAB 325 MG TAB PO PRN (20:25)
[2023-06-09] MEDS: MORPHINE SULFATE 2 MG/ML SYRINGE IV PRN (21:59)
[2023-06-09] MEDS: LORazepam 2 MG/ML INJ IV PRN (22:00)
[2023-06-09] MEDS: GLYCOPYRROLATE 0.2 MG/ML 2 ML VIAL IVP PRN (22:01)
[2023-06-10] MEDS: SCOPOLAMINE 1 MG/72 HR PATCH TRANSDERM SCH (01:18)
[2023-06-10 04:52] VITALS: PULSE 87
[2023-06-10 10:41] VITALS: RESP 18
[2023-06-10 10:42] VITALS: BMI 16.7
[2023-06-10] MEDS ORDERED: GLYCOPYRROLATE 0.2 MG/ML 2 ML VIAL IVP PRN (11:48)
[2023-06-10] MEDS: MORPHINE SULFATE (100 MG/2 ML) 100 MG in SODIUM CHLORIDE 0.9% 100 ML IV SCH (12:24)
[2023-06-10] MEDS: ATROPINE OPHTH SOLN 1% 5ML BTL SUBLINGUAL PRN (12:33)
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
--- NOTE | 2023-06-12 08:49 | P.DS ---
Providers Date of admission: 06/09/23 20:51 Expected date of discharge: 06/10/23 Attending physician: Nicole Hu Primary care physician: Stated None Hospital Course: Discharge diagnoses; Acute hypoxemic respiratory failure, likely multifactorial, the patient has lower lobe consolidation and discontinued sequently for representation of underlying metastatic disease. Multiple echogenic liver masses, identified on abdominal ultrasound, and suspicious for metastatic disease. Transaminitis Acute delirium and schizoaffective disorder Bilateral lower extremity edema, generalized anasarca and ascites Hypoalbuminemia T5 compression fracture, rule out pathologic fracture Moderate protein calorie malnutrition Severe hypokalemia Normocytic normochromic anemia Sinus tachycardia, with frequent PACs, improved Suspect underlying chronic obstructive pulmonary disease Chronic ongoing tobacco dependence Homelessness Hospital course; patient is a 62-year-old white male, initially admitted to the hospital for not feeling well . During workup the patient was noted to have elevated liver enzymes, leading to gallbladder ultrasound. This showed echogenic material in the gallbladder, suggestive of sludge. However incidentally it was seen that the liver was markedly heterogenous, with appearance strongly suggestive of multiple liver masses. Patient was admitted to the medicine service and was seen by hematology oncology, pulmonology, cardiology and psychiatry. Patient was found to have no capacity and was refusing all workup. Patient had a legal guardian appointed. Because of patient's poor prognosis this was opinion of multiple specialities that the patient was appropriate for hospice. Patient was transferred to inpatient hospice. Patient was under comfort care, was pronounced at 12:47 PM on 06/10/2023 Dictation was produced using [employer] dictation software. please excuse any grammatical, word or spelling errors. Patient Condition at Discharge: Serious Plan - Discharge Summary New Discharge Prescriptions: No Action No Known Home Medications Discharge Medication List No Known Home Medications 06/01/23 [History] Discharge Disposition: - Preliminary Cause of Preliminary Cause of : Liver metastasis
== END 2023-06-10 14:28 | disposition expired | DRG 951 ==
LOC: 3SCARD 20:51
PROVIDERS: ADMIT Hospitalist; ATTEND Hospitalist
DX: Z51.5 Encounter for palliative care (principal); J96.01 Acute respiratory failure with hypoxia; E44.0 Moderate protein-calorie malnutrition; M48.54XA Collapsed vertebra, not elsewhere classified, thoracic region, initial encounter for fracture; R18.8 Other ascites; Z68.1 Body mass index [BMI] 19.9 or less, adult; F05 Delirium due to known physiological condition; D64.9 Anemia, unspecified; R00.0 Tachycardia, unspecified; Z66 Do not resuscitate; J44.9 Chronic obstructive pulmonary disease, unspecified; I49.3 Ventricular premature depolarization; E87.6 Hypokalemia; R74.01 Elevation of levels of liver transaminase levels; K76.89 Other specified diseases of liver; R91.8 Other nonspecific abnormal finding of lung field; E88.09 Other disorders of plasma-protein metabolism, not elsewhere classified; F25.9 Schizoaffective disorder, unspecified
CPT/HCPCS: 94760